=== PATIENT | male | born 1955 | race African-American/Black ===

== ENCOUNTER 2017-10-16 04:47 | Inpatient (IN) ==
[2017-10-16] MEDS ORDERED: DOPamine 800 MG/250 ML PREMIX IV ONE ×2 (05:09→17:54)
[2017-10-16] MEDS ORDERED: SODIUM CHLORIDE 0.9% 1,000 ML IV STA (05:23)
[2017-10-16] MEDS ORDERED: DOPamine 800 MG/250 ML PREMIX IV PRN (05:23)
[2017-10-16] MEDS ORDERED: VANCOMYCIN INJ 1,000 MG in SODIUM CHLORIDE 0.9% 250 ML IV STA (05:40)
[2017-10-16] MEDS ORDERED: ONDANSETRON 4 MG/2 ML VIAL IV PRN (06:51)
[2017-10-16] MEDS ORDERED: ALBUTEROL 2.5 MG/3 ML NEB RESP TX PRN (06:51)
[2017-10-16] MEDS ORDERED: VANCOMYCIN INJ 1,250 MG in SODIUM CHLORIDE 0.9% 250 ML IV PRN (07:38)
[2017-10-16 07:50] LABS: Amorphous Crystals,Urine Few /HPF (Few); Apearance,Urine CLOUDY (Clear); Bacteria,Urine Few /HPF (Few); Bilirubin,Urine Negative (Negative); Blood, Urine Moderate mg/dL (Negative); Glucose,Urine (UA) 50 mg/dL (Negative); Hyaline Casts,Urine 8 /LPF (0-3); Ketones,Urine 5 mg/dL (Negative); Mucus,Urine Occasional /LPF (Occasional); Nitrite,Urine Negative (Negative); Protein,Urine >=500 MG/DL; RBC,Urine 42 /HPF (0-4); Squamous Epithelial Cell,Urine Occasional /HPF (0-10); Urine Color Amber (Yellow); Urine Specific Gravity 1.015 (1.001-1.035); WBC,Urine 145 /HPF (0-6)
[2017-10-16] MEDS ORDERED: PIPERACILLIN/TAZOBACTAM 3,375 MG in SODIUM CHLORIDE 0.9% 100 ML IV SCH (08:00)
[2017-10-16] MEDS: SODIUM CHLOR 0.9% KCL 40 MEQ 40 MEQ/1,000 ML BAG IV SCH ×2 (08:00→12:00)
[2017-10-16] MEDS ORDERED: MORPHINE 4 MG/1 ML VIAL ONE (08:04)
[2017-10-16] MEDS: PANTOPRAZOLE 40 MG VIAL IV SCH (09:00)
[2017-10-16] MEDS: NOREPINEPHRINE 8 MG in SODIUM CHLORIDE 0.9% 242 ML IV PRN ×3 (09:00→20:00)
[2017-10-16] MEDS ORDERED: HEPARIN/NACL 0.9% 2 UNITS/ML 500 ML IV ONE (10:22)
[2017-10-16 10:35] LABS: Lactic Acid 2.1 MMOL/L (0.4-2.0)
[2017-10-16] MEDS ORDERED: POTASSIUM CHLORIDE 20 MEQ TABLET PO ONE (10:47)
[2017-10-16 10:55] LABS: VBG Base Excess -4.5 MEQ/L (0-4); VBG HCO3 20.7 MEQ/L (24-28); VBG Oxygen Saturation 97.3 %; VBG PH 7.403
[2017-10-16] MEDS: cefTRIAXone 1,000 MG in SYRINGE 1 EACH IV SCH ×2 (11:00→21:32)
[2017-10-16] MEDS ORDERED: VANCOMYCIN INJ 500 MG in SODIUM CHLORIDE 0.9% 100 ML IV ONE (11:00)
[2017-10-16] MEDS ORDERED: SODIUM BICARBONATE 50 MEQ/50 ML SYRINGE IV ONE ×3 (11:08→12:48)
[2017-10-16 11:17] LABS: Calcium 7.2 MG/DL (8.5-10.1); Osmolality,Calculated 355.8 MOS/KG (273-304)
[2017-10-16 11:20] LABS: Potassium 1.9 MMOL/L (3.5-5.1)
[2017-10-16] MEDS: POTASSIUM CHLORIDE RIDER 20 MEQ in PREMIX 1 EACH IV SCH ×3 (11:30→14:30)
[2017-10-16] MEDS: metroNIDAZOLE INJ 500 MG in PREMIX 1 EACH IV SCH ×2 (12:30→21:32)
[2017-10-16 13:51] LABS: Calcium 6.9 MG/DL (8.5-10.1); Osmolality,Calculated 353.8 MOS/KG (273-304); Potassium 3.2 MMOL/L (3.5-5.1)
[2017-10-16] MEDS ORDERED: MORPHINE 4 MG/1 ML VIAL IV ONE (14:25)
[2017-10-16] MEDS ORDERED: NOREPINEPHRINE 4 MG/4 ML VIAL IV ONE (15:07)
[2017-10-16] MEDS: POTASSIUM CHLORIDE INJ 40 MEQ in SODIUM CHLORIDE 0.45% 1,000 ML IV SCH (17:30)
[2017-10-16 17:53] LABS: Calcium 6.7 MG/DL (8.5-10.1); Osmolality,Calculated 356.6 MOS/KG (273-304); Potassium 4.3 MMOL/L (3.5-5.1)
[2017-10-16] MEDS: DOPamine 800 MG/250 ML PREMIX IV PRN (18:00)
[2017-10-16] MEDS: MORPHINE 4 MG/1 ML VIAL IV PRN (18:00)
[2017-10-16 21:06] LABS: Osmolality,Calculated 359.5 MOS/KG (273-304); Potassium 3.4 MMOL/L (3.5-5.1)
[2017-10-17] MEDS: POTASSIUM CHLORIDE INJ 40 MEQ in SODIUM CHLORIDE 0.45% 1,000 ML IV SCH (01:48)
[2017-10-17] MEDS: metroNIDAZOLE INJ 500 MG in PREMIX 1 EACH IV SCH ×3 (04:10→18:18)
[2017-10-17 04:49] LABS: Basophils % 0.1 % (0.0-0.8); Eosinophils # 0.1 10*3/uL (0.0-0.87); Eosinophils % 0.3 % (0.00-10.9); Hematocrit 30.8 VOL% (42.0-52.0); Hemoglobin 9.5 GM/DL (14.0-18.0); Immature Granulocytes % 1.1 %; Immature Granulocytes Absolute 0.17 #; Lymphocytes # 2.2 10*3/uL (1.4-4.0); Lymphocytes % 15.1 % (21.2-54.2); Mean Corpuscular HGB Conc 30.8 GM/DL (32-36); Mean Corpuscular Hemoglobin 30 PG (27-34); Mean Corpuscular Volume 96.3 FL (87-102); Mean Platelet Volume 12.6 FL (9.6-12.0); NRBC # 0.13 10*3/uL; Neutrophils # 11.3 10*3/uL (1.4-7.4); Neutrophils % 76.4 % (38.7-73.9); Platelet Count 160 T/CUMM (130-400); Red Cell Distribution Width 20.6 % (9.3-17.3); White Blood Count 14.8 T/CUMM (4-12)
[2017-10-17 05:45] LABS: Hypochromasia 1+; Lymphocytes 9 % (20-55); Microcytosis Slight; Platelet Estimate Normal; Segmented Neutrophils 85 % (50-85); Total Cells Counted 100
[2017-10-17] MEDS: NOREPINEPHRINE 8 MG in SODIUM CHLORIDE 0.9% 242 ML IV PRN ×4 (07:46→22:24)
[2017-10-17] MEDS: DOPamine 800 MG/250 ML PREMIX IV PRN (08:34)
[2017-10-17] MEDS ORDERED: DEXTROSE 50% 25 GM/50 ML VIAL IV PRN (09:15)
[2017-10-17] MEDS ORDERED: GLUCAGON 1 MG VIAL IM PRN (09:15)
[2017-10-17] MEDS ORDERED: POTASSIUM CHLORIDE INJ 40 MEQ in DEXTROSE 5% 1,000 ML IV SCH (10:00)
[2017-10-17] MEDS: cefTRIAXone 1,000 MG in SYRINGE 1 EACH IV SCH ×2 (10:17→22:27)
[2017-10-17] MEDS: PANTOPRAZOLE 40 MG VIAL IV SCH (10:18)
[2017-10-17 11:43] LABS: Potassium 3.6 MMOL/L (3.5-5.1)
[2017-10-17] MEDS: INSULIN LISPRO 100 UNIT/ML SUBCUT SCH ×3 (13:13→20:29)
[2017-10-17] MEDS: FLUCONAZOLE INJ 100 MG in IV BAG 1 EACH IV SCH (13:13)
[2017-10-17 15:39] LABS: Calcium 7.2 MG/DL (8.5-10.1); Osmolality,Calculated 340.7 MOS/KG (273-304)
[2017-10-17] MEDS: SKIN HEALING OINT (AQUAPHOR) 50 GM TUBE TOP SCH (16:16)
[2017-10-17] MEDS: SODIUM HYPOCHLORITE 0.25% IRRIG 473 ML BOTTLE TOP SCH (16:16)
[2017-10-17] MEDS: SODIUM CHLORIDE 0.45% 1,000 ML IV SCH (16:16)
[2017-10-18] MEDS: INSULIN LISPRO 100 UNIT/ML SUBCUT SCH ×7 (00:28→23:37)
[2017-10-18] MEDS: SODIUM CHLORIDE 0.45% 1,000 ML IV SCH (00:35)
[2017-10-18] MEDS: NOREPINEPHRINE 8 MG in SODIUM CHLORIDE 0.9% 242 ML IV PRN ×4 (01:44→21:18)
[2017-10-18] MEDS: metroNIDAZOLE INJ 500 MG in PREMIX 1 EACH IV SCH ×3 (03:16→18:51)
[2017-10-18 05:36] LABS: Basophils % 0.1 % (0.0-0.8); Eosinophils # 0.2 10*3/uL (0.0-0.87); Eosinophils % 1.9 % (0.00-10.9); Hemoglobin 8.4 GM/DL (14.0-18.0); Immature Granulocytes % 1.1 %; Immature Granulocytes Absolute 0.12 #; Lymphocytes # 2.4 10*3/uL (1.4-4.0); Lymphocytes % 21.7 % (21.2-54.2); Mean Corpuscular HGB Conc 31.1 GM/DL (32-36); Mean Corpuscular Hemoglobin 30 PG (27-34); Mean Corpuscular Volume 95.1 FL (87-102); Mean Platelet Volume 12.1 FL (9.6-12.0); Monocytes # 0.8 10*3/uL (0.11-0.8); Monocytes % 6.8 % (1.7-12.7); NRBC # 0.07 10*3/uL; Neutrophils # 7.6 10*3/uL (1.4-7.4); Neutrophils % 68.4 % (38.7-73.9); Red Blood Count 2.84 MC/CUMM (3.8-5.5); White Blood Count 11.1 T/CUMM (4-12)
[2017-10-18 05:38] LABS: Platelet Count 108 T/CUMM (130-400)
[2017-10-18 05:41] LABS: Calcium 6.9 MG/DL (8.5-10.1); Osmolality,Calculated 329.9 MOS/KG (273-304); Potassium 2.8 MMOL/L (3.5-5.1)
[2017-10-18] MEDS ORDERED: POTASSIUM CHLORIDE 20 MEQ TABLET PO ONE (07:31)
[2017-10-18] MEDS: PANTOPRAZOLE 40 MG VIAL IV SCH (08:03)
[2017-10-18] MEDS: POTASSIUM CHLORIDE INJ 40 MEQ in DEXTROSE 5% 1,000 ML IV SCH ×2 (08:27→19:00)
[2017-10-18] MEDS: cefTRIAXone 1,000 MG in SYRINGE 1 EACH IV SCH ×2 (11:48→21:19)
[2017-10-18] MEDS: SODIUM HYPOCHLORITE 0.25% IRRIG 473 ML BOTTLE TOP SCH (11:55)
[2017-10-18] MEDS: SKIN HEALING OINT (AQUAPHOR) 50 GM TUBE TOP SCH (11:56)
[2017-10-18 13:18] LABS: Calcium 7.3 MG/DL (8.5-10.1); Osmolality,Calculated 330.9 MOS/KG (273-304); Potassium 3.5 MMOL/L (3.5-5.1)
[2017-10-18] MEDS: VANCOMYCIN INJ 1,250 MG in SODIUM CHLORIDE 0.9% 250 ML IV SCH (13:18)
[2017-10-18] MEDS: FLUCONAZOLE INJ 100 MG in IV BAG 1 EACH IV SCH (13:59)
[2017-10-19] MEDS: metroNIDAZOLE INJ 500 MG in PREMIX 1 EACH IV SCH ×2 (02:08→11:23)
[2017-10-19] MEDS: INSULIN LISPRO 100 UNIT/ML SUBCUT SCH ×6 (04:58→23:49)
[2017-10-19 05:27] LABS: Basophils % 0.1 % (0.0-0.8); Eosinophils # 0.4 10*3/uL (0.0-0.87); Eosinophils % 3.7 % (0.00-10.9); Hematocrit 24.8 VOL% (42.0-52.0); Hemoglobin 7.7 GM/DL (14.0-18.0); Immature Granulocytes % 0.8 %; Immature Granulocytes Absolute 0.08 #; Lymphocytes # 1.8 10*3/uL (1.4-4.0); Lymphocytes % 18.6 % (21.2-54.2); Mean Corpuscular Hemoglobin 29 PG (27-34); Mean Corpuscular Volume 94.7 FL (87-102); Mean Platelet Volume 12.2 FL (9.6-12.0); Monocytes # 0.7 10*3/uL (0.11-0.8); Monocytes % 7.1 % (1.7-12.7); NRBC # 0.02 10*3/uL; Neutrophils # 6.8 10*3/uL (1.4-7.4); Neutrophils % 69.7 % (38.7-73.9); Platelet Count 88 T/CUMM (130-400); Red Blood Count 2.62 MC/CUMM (3.8-5.5); Red Cell Distribution Width 21.2 % (9.3-17.3); White Blood Count 9.8 T/CUMM (4-12)
[2017-10-19 05:44] LABS: Burr Cells Slight; Microcytosis 1+
[2017-10-19 05:45] LABS: Hypochromasia 1+; Platelet Estimate Decreased
[2017-10-19 05:48] LABS: Calcium 7.1 MG/DL (8.5-10.1); Osmolality,Calculated 323.2 MOS/KG (273-304); Potassium 3.3 MMOL/L (3.5-5.1)
[2017-10-19 05:52] LABS: Albumin 1.4 G/DL (3.4-5.0); Bilirubin,Total 0.6 MG/DL (0.2-1.0); Potassium 3.3 MMOL/L (3.5-5.1); Total Protein 4.4 G/DL (6.4-8.3)
[2017-10-19] MEDS: POTASSIUM CHLORIDE INJ 40 MEQ in DEXTROSE 5% 1,000 ML IV SCH ×2 (06:11→17:12)
[2017-10-19] MEDS: NOREPINEPHRINE 8 MG in SODIUM CHLORIDE 0.9% 242 ML IV PRN ×2 (06:12→15:43)
[2017-10-19] MEDS: SODIUM HYPOCHLORITE 0.25% IRRIG 473 ML BOTTLE TOP SCH (09:48)
[2017-10-19] MEDS: SKIN HEALING OINT (AQUAPHOR) 50 GM TUBE TOP SCH (09:48)
[2017-10-19] MEDS: PANTOPRAZOLE 40 MG VIAL IV SCH (09:54)
[2017-10-19] MEDS: cefTRIAXone 1,000 MG in SYRINGE 1 EACH IV SCH (10:02)
[2017-10-19] MEDS ORDERED: MAGNESIUM SULF RIDER 4 GM in PREMIX 1 EACH IV ONE (10:20)
[2017-10-19] MEDS ORDERED: POTASSIUM CHLORIDE 20 MEQ TABLET PO SCH (10:30)
[2017-10-19] MEDS: POTASSIUM CHLORIDE 20 MEQ/15 ML UDCUP PO SCH ×3 (11:22→20:54)
[2017-10-19] MEDS: VANCOMYCIN INJ 1,250 MG in SODIUM CHLORIDE 0.9% 250 ML IV SCH (12:30)
[2017-10-19] MEDS: FLUCONAZOLE INJ 100 MG in IV BAG 1 EACH IV SCH (12:31)
[2017-10-19] MEDS ORDERED: cefTRIAXone 2,000 MG in SYRINGE 1 EACH IV SCH (13:30)
[2017-10-20] MEDS: NOREPINEPHRINE 8 MG in SODIUM CHLORIDE 0.9% 242 ML IV PRN ×2 (01:42→15:34)
[2017-10-20] MEDS: POTASSIUM CHLORIDE INJ 40 MEQ in DEXTROSE 5% 1,000 ML IV SCH ×2 (04:10→16:41)
[2017-10-20 05:00] LABS: Prealbumin 5.8 MG/DL (20-40)
[2017-10-20 05:03] LABS: Calcium 7.1 MG/DL (8.5-10.1); Osmolality,Calculated 312.6 MOS/KG (273-304); Potassium 3.3 MMOL/L (3.5-5.1)
[2017-10-20] MEDS: INSULIN LISPRO 100 UNIT/ML SUBCUT SCH ×3 (06:30→18:35)
[2017-10-20] MEDS ORDERED: MAGNESIUM SULF RIDER 2 GM in PREMIX 1 EACH IV ONE (08:48)
[2017-10-20] MEDS: POTASSIUM CHLORIDE 20 MEQ TABLET PO SCH ×2 (09:39→13:01)
[2017-10-20] MEDS: SODIUM HYPOCHLORITE 0.25% IRRIG 473 ML BOTTLE TOP SCH (09:39)
[2017-10-20] MEDS: SKIN HEALING OINT (AQUAPHOR) 50 GM TUBE TOP SCH (09:39)
[2017-10-20] MEDS: PANTOPRAZOLE 40 MG VIAL IV SCH (09:42)
[2017-10-20] MEDS: FLUCONAZOLE INJ 100 MG in IV BAG 1 EACH IV SCH (13:01)
[2017-10-20] MEDS ORDERED: POTASSIUM PHOSPHATE 30 MMOL in SODIUM CHLORIDE 0.9% 250 ML IV ONE (14:00)
[2017-10-20] MEDS: MEROPENEM 1,000 MG in SYRINGE 1 EACH IV SCH (17:15)
[2017-10-20] MEDS ORDERED: IBUPROFEN 100 MG/5 ML UDCUP PO PRN (18:04)
[2017-10-20] MEDS: VANCOMYCIN INJ 1,250 MG in SODIUM CHLORIDE 0.9% 250 ML IV SCH (18:24)
[2017-10-21] MEDS: MEROPENEM 1,000 MG in SYRINGE 1 EACH IV SCH ×3 (00:33→16:47)
[2017-10-21] MEDS: INSULIN LISPRO 100 UNIT/ML SUBCUT SCH ×5 (00:33→23:20)
[2017-10-21 04:51] LABS: Basophils % 0.1 % (0.0-0.8); Eosinophils # 0.3 10*3/uL (0.0-0.87); Hemoglobin 6.7 GM/DL (14.0-18.0); Immature Granulocytes % 1.3 %; Immature Granulocytes Absolute 0.09 #; Lymphocytes % 30.2 % (21.2-54.2); Mean Corpuscular HGB Conc 31.9 GM/DL (32-36); Mean Corpuscular Hemoglobin 30 PG (27-34); Mean Corpuscular Volume 92.5 FL (87-102); Monocytes # 0.6 10*3/uL (0.11-0.8); Monocytes % 8.6 % (1.7-12.7); Neutrophils # 3.8 10*3/uL (1.4-7.4); Neutrophils % 55.8 % (38.7-73.9); Platelet Count 92 T/CUMM (130-400); Red Blood Count 2.27 MC/CUMM (3.8-5.5); Red Cell Distribution Width 22.1 % (9.3-17.3); White Blood Count 6.8 T/CUMM (4-12)
[2017-10-21 05:21] LABS: Band Neutrophils 1 % (0-10); Eosinophils 7 % (0-10); Lymphocytes 15 % (20-55); Segmented Neutrophils 71 % (50-85); Total Cells Counted 100
[2017-10-21 05:22] LABS: Hypochromasia 1+; Microcytosis 1+; Ovalocytes Slight; Platelet Estimate Decreased
[2017-10-21 05:36] LABS: Calcium 6.6 MG/DL (8.5-10.1); Osmolality,Calculated 302.3 MOS/KG (273-304); Potassium 4.1 MMOL/L (3.5-5.1)
[2017-10-21] MEDS: POTASSIUM CHLORIDE INJ 40 MEQ in DEXTROSE 5% 1,000 ML IV SCH ×3 (06:10→20:54)
[2017-10-21] MEDS: PANTOPRAZOLE 40 MG VIAL IV SCH (08:24)
[2017-10-21] MEDS: NOREPINEPHRINE 8 MG in SODIUM CHLORIDE 0.9% 242 ML IV PRN ×3 (08:45→23:50)
[2017-10-21] MEDS ORDERED: SODIUM CHLORIDE 0.9% 1,000 ML IV PRN (10:09)
[2017-10-21] MEDS: FLUCONAZOLE INJ 100 MG in IV BAG 1 EACH IV SCH (13:10)
[2017-10-21] MEDS: VANCOMYCIN INJ 1,250 MG in SODIUM CHLORIDE 0.9% 250 ML IV SCH (13:10)
[2017-10-21] MEDS: SKIN HEALING OINT (AQUAPHOR) 50 GM TUBE TOP SCH (13:11)
[2017-10-21] MEDS: SODIUM HYPOCHLORITE 0.25% IRRIG 473 ML BOTTLE TOP SCH (13:11)
[2017-10-21] MEDS ORDERED: NOREPINEPHRINE 4 MG/4 ML VIAL IV ONE (16:56)
[2017-10-21] MEDS: MORPHINE 4 MG/1 ML VIAL IV PRN (18:18)
[2017-10-22] MEDS: MEROPENEM 1,000 MG in SYRINGE 1 EACH IV SCH ×3 (00:08→16:53)
[2017-10-22 03:54] LABS: Basophils % 0.1 % (0.0-0.8); Eosinophils # 0.3 10*3/uL (0.0-0.87); Eosinophils % 3.4 % (0.00-10.9); Hematocrit 23.8 VOL% (42.0-52.0); Hemoglobin 7.4 GM/DL (14.0-18.0); Immature Granulocytes % 1.3 %; Lymphocytes # 1.7 10*3/uL (1.4-4.0); Lymphocytes % 21.2 % (21.2-54.2); Mean Corpuscular HGB Conc 31.1 GM/DL (32-36); Mean Corpuscular Hemoglobin 29 PG (27-34); Mean Corpuscular Volume 94.4 FL (87-102); Mean Platelet Volume 13.3 FL (9.6-12.0); Monocytes # 0.8 10*3/uL (0.11-0.8); Monocytes % 9.5 % (1.7-12.7); Neutrophils # 5.1 10*3/uL (1.4-7.4); Neutrophils % 64.5 % (38.7-73.9); Platelet Count 138 T/CUMM (130-400); Red Blood Count 2.52 MC/CUMM (3.8-5.5); Red Cell Distribution Width 22.3 % (9.3-17.3); White Blood Count 7.9 T/CUMM (4-12)
[2017-10-22 03:59] LABS: Calcium 6.9 MG/DL (8.5-10.1); Osmolality,Calculated 295.7 MOS/KG (273-304); Potassium 3.9 MMOL/L (3.5-5.1)
[2017-10-22 05:15] LABS: Eosinophils 2 % (0-10); Lymphocytes 17 % (20-55); Macrocytosis Slight; Platelet Estimate Normal; Segmented Neutrophils 78 % (50-85); Total Cells Counted 100
[2017-10-22] MEDS: INSULIN LISPRO 100 UNIT/ML SUBCUT SCH ×3 (05:28→18:03)
[2017-10-22] MEDS: VANCOMYCIN INJ 1,250 MG in SODIUM CHLORIDE 0.9% 250 ML IV SCH (06:05)
[2017-10-22] MEDS: SODIUM HYPOCHLORITE 0.25% IRRIG 473 ML BOTTLE TOP SCH (08:29)
[2017-10-22] MEDS: SKIN HEALING OINT (AQUAPHOR) 50 GM TUBE TOP SCH (08:29)
[2017-10-22] MEDS: PANTOPRAZOLE 40 MG VIAL IV SCH (08:30)
[2017-10-22] MEDS ORDERED: MAGNESIUM SULF RIDER 4 GM in PREMIX 1 EACH IV ONE (08:31)
[2017-10-22] MEDS: NOREPINEPHRINE 8 MG in SODIUM CHLORIDE 0.9% 242 ML IV PRN (11:04)
[2017-10-22] MEDS: FLUCONAZOLE INJ 100 MG in IV BAG 1 EACH IV SCH (12:05)
[2017-10-22] MEDS: POTASSIUM CHLORIDE INJ 40 MEQ in DEXTROSE 5% 1,000 ML IV SCH (17:49)
[2017-10-23] MEDS: INSULIN LISPRO 100 UNIT/ML SUBCUT SCH ×4 (00:09→18:10)
[2017-10-23] MEDS: MEROPENEM 1,000 MG in SYRINGE 1 EACH IV SCH ×3 (00:13→16:35)
[2017-10-23] MEDS: VANCOMYCIN INJ 1,250 MG in SODIUM CHLORIDE 0.9% 250 ML IV SCH ×2 (00:14→18:50)
[2017-10-23] MEDS: MORPHINE 4 MG/1 ML VIAL IV PRN (00:14)
[2017-10-23] MEDS: NOREPINEPHRINE 8 MG in SODIUM CHLORIDE 0.9% 242 ML IV PRN ×2 (03:22→16:48)
[2017-10-23 03:23] LABS: Basophils % 0.2 % (0.0-0.8); Eosinophils # 0.2 10*3/uL (0.0-0.87); Eosinophils % 3.2 % (0.00-10.9); Hematocrit 21.3 VOL% (42.0-52.0); Hemoglobin 6.6 GM/DL (14.0-18.0); Immature Granulocytes Absolute 0.06 #; Lymphocytes # 1.6 10*3/uL (1.4-4.0); Lymphocytes % 24.8 % (21.2-54.2); Mean Corpuscular Hemoglobin 29 PG (27-34); Mean Corpuscular Volume 94.2 FL (87-102); Mean Platelet Volume 12.4 FL (9.6-12.0); Monocytes # 0.6 10*3/uL (0.11-0.8); Monocytes % 9.8 % (1.7-12.7); Neutrophils # 3.8 10*3/uL (1.4-7.4); Platelet Count 136 T/CUMM (130-400); Red Blood Count 2.26 MC/CUMM (3.8-5.5); Red Cell Distribution Width 22.4 % (9.3-17.3); White Blood Count 6.2 T/CUMM (4-12)
[2017-10-23 03:40] LABS: Osmolality,Calculated 291.7 MOS/KG (273-304); Potassium 3.4 MMOL/L (3.5-5.1)
[2017-10-23] MEDS: MAGNESIUM SULF RIDER 2 GM in PREMIX 1 EACH IV PRN (04:56)
[2017-10-23] MEDS: POTASSIUM CHLORIDE 20 MEQ/15 ML UDCUP PER TUBE PRN ×4 (04:57→16:41)
[2017-10-23] MEDS: PANTOPRAZOLE 40 MG VIAL IV SCH (08:31)
[2017-10-23] MEDS: SKIN HEALING OINT (AQUAPHOR) 50 GM TUBE TOP SCH (08:31)
[2017-10-23] MEDS: SODIUM HYPOCHLORITE 0.25% IRRIG 473 ML BOTTLE TOP SCH (08:31)
[2017-10-23] MEDS ORDERED: POTASSIUM CHLORIDE 20 MEQ TABLET PO SCH (09:30)
[2017-10-23] MEDS: FLUCONAZOLE INJ 100 MG in IV BAG 1 EACH IV SCH (13:20)
[2017-10-24] MEDS: MEROPENEM 1,000 MG in SYRINGE 1 EACH IV SCH ×3 (00:16→16:44)
[2017-10-24] MEDS: MORPHINE 4 MG/1 ML VIAL IV PRN (02:41)
[2017-10-24 05:00] LABS: Basophils % 0.2 % (0.0-0.8); Eosinophils # 0.2 10*3/uL (0.0-0.87); Eosinophils % 2.7 % (0.00-10.9); Hematocrit 19.6 VOL% (42.0-52.0); Immature Granulocytes % 0.7 %; Immature Granulocytes Absolute 0.04 #; Lymphocytes # 1.4 10*3/uL (1.4-4.0); Lymphocytes % 25.4 % (21.2-54.2); Mean Corpuscular HGB Conc 31.6 GM/DL (32-36); Mean Corpuscular Hemoglobin 30 PG (27-34); Mean Corpuscular Volume 95.1 FL (87-102); Monocytes # 0.6 10*3/uL (0.11-0.8); Monocytes % 11.5 % (1.7-12.7); Neutrophils # 3.3 10*3/uL (1.4-7.4); Neutrophils % 59.5 % (38.7-73.9); Platelet Count 157 T/CUMM (130-400); Red Blood Count 2.06 MC/CUMM (3.8-5.5); Red Cell Distribution Width 22.7 % (9.3-17.3); White Blood Count 5.5 T/CUMM (4-12)
[2017-10-24 05:02] LABS: Hemoglobin 6.2 GM/DL (14.0-18.0)
[2017-10-24 05:22] LABS: Osmolality,Calculated 295.4 MOS/KG (273-304); Potassium 3.4 MMOL/L (3.5-5.1)
[2017-10-24 05:27] LABS: Prealbumin 11.5 MG/DL (20-40)
[2017-10-24] MEDS: INSULIN LISPRO 100 UNIT/ML SUBCUT SCH ×4 (05:27→18:16)
[2017-10-24 05:31] LABS: Eosinophils 2 % (0-10); Lymphocytes 24 % (20-55); Segmented Neutrophils 67 % (50-85); Total Cells Counted 100
[2017-10-24 05:32] LABS: Hypochromasia 1+; Platelet Estimate Normal
[2017-10-24] MEDS: MAGNESIUM SULF RIDER 2 GM in PREMIX 1 EACH IV PRN (07:01)
[2017-10-24] MEDS: NOREPINEPHRINE 8 MG in SODIUM CHLORIDE 0.9% 242 ML IV PRN (07:01)
[2017-10-24] MEDS: POTASSIUM CHLORIDE 20 MEQ/15 ML UDCUP PER TUBE PRN ×4 (07:02→20:30)
[2017-10-24] MEDS: PANTOPRAZOLE 40 MG VIAL IV SCH (09:14)
[2017-10-24] MEDS: SODIUM HYPOCHLORITE 0.25% IRRIG 473 ML BOTTLE TOP SCH (12:32)
[2017-10-24] MEDS: SKIN HEALING OINT (AQUAPHOR) 50 GM TUBE TOP SCH (12:33)
[2017-10-24] MEDS: FLUCONAZOLE INJ 100 MG in IV BAG 1 EACH IV SCH (12:44)
[2017-10-24] MEDS: IBUPROFEN 800 MG TABLET PO PRN (14:12)
[2017-10-24] MEDS ORDERED: VANCOMYCIN INJ 1,250 MG in SODIUM CHLORIDE 0.9% 250 ML IV PRN (15:20)
[2017-10-24] MEDS ORDERED: VANCOMYCIN INJ 1,250 MG in SODIUM CHLORIDE 0.9% 250 ML IV ONE (16:00)
[2017-10-24 19:12] LABS: Hematocrit 25.7 VOL% (42.0-52.0); Hemoglobin 8.3 GM/DL (14.0-18.0)
[2017-10-25] MEDS: NOREPINEPHRINE 8 MG in SODIUM CHLORIDE 0.9% 242 ML IV PRN (00:02)
[2017-10-25] MEDS: INSULIN LISPRO 100 UNIT/ML SUBCUT SCH ×3 (00:08→12:23)
[2017-10-25 04:50] LABS: Basophils % 0.2 % (0.0-0.8); Eosinophils # 0.2 10*3/uL (0.0-0.87); Eosinophils % 2.8 % (0.00-10.9); Hematocrit 26.3 VOL% (42.0-52.0); Hemoglobin 8.5 GM/DL (14.0-18.0); Immature Granulocytes % 0.7 %; Immature Granulocytes Absolute 0.04 #; Lymphocytes # 1.6 10*3/uL (1.4-4.0); Lymphocytes % 27.7 % (21.2-54.2); Mean Corpuscular HGB Conc 32.3 GM/DL (32-36); Mean Corpuscular Hemoglobin 30 PG (27-34); Mean Corpuscular Volume 93.9 FL (87-102); Mean Platelet Volume 11.6 FL (9.6-12.0); Monocytes # 0.7 10*3/uL (0.11-0.8); Neutrophils # 3.3 10*3/uL (1.4-7.4); Neutrophils % 56.6 % (38.7-73.9); Platelet Count 187 T/CUMM (130-400); Red Cell Distribution Width 20.1 % (9.3-17.3); White Blood Count 5.8 T/CUMM (4-12)
[2017-10-25 05:26] LABS: Eosinophils 1 % (0-10); Hypochromasia 1+; Lymphocytes 25 % (20-55); Ovalocytes Slight; Platelet Estimate Adequate; Segmented Neutrophils 57 % (50-85); Total Cells Counted 100
[2017-10-25 05:27] LABS: Albumin 1.1 G/DL (3.4-5.0); Bilirubin,Total 0.4 MG/DL (0.2-1.0); Calcium 7.5 MG/DL (8.5-10.1); Osmolality,Calculated 291.4 MOS/KG (273-304); Potassium 3.4 MMOL/L (3.5-5.1); Total Protein 4.6 G/DL (6.4-8.3)
[2017-10-25] MEDS: POTASSIUM CHLORIDE 20 MEQ/15 ML UDCUP PER TUBE PRN ×3 (05:48→11:03)
[2017-10-25] MEDS: MAGNESIUM SULF RIDER 4 GM in PREMIX 1 EACH IV PRN (05:50)
[2017-10-25] MEDS ORDERED: POTASSIUM PHOSPHATE 40 MMOL in SODIUM CHLORIDE 0.9% 250 ML IV ONE (10:00)
[2017-10-25] MEDS: MEROPENEM 1,000 MG in SYRINGE 1 EACH IV SCH ×3 (11:04→16:43)
[2017-10-25] MEDS: PANTOPRAZOLE 40 MG VIAL IV SCH (11:04)
[2017-10-25] MEDS: FLUCONAZOLE INJ 100 MG in IV BAG 1 EACH IV SCH (13:14)
[2017-10-25] MEDS: SODIUM HYPOCHLORITE 0.25% IRRIG 473 ML BOTTLE TOP SCH (14:10)
[2017-10-25] MEDS: SKIN HEALING OINT (AQUAPHOR) 50 GM TUBE TOP SCH (14:10)
[2017-10-25] MEDS: SODIUM CHLOR 0.45% KCL 20 MEQ 20 MEQ/1,000 ML BAG IV SCH ×2 (15:00→23:50)
[2017-10-25] MEDS: IBUPROFEN 800 MG TABLET PO PRN ×2 (15:11→22:04)
[2017-10-25] MEDS: ENOXAPARIN 100 MG/ML SYRINGE SUBCUT SCH (16:43)
[2017-10-26] MEDS: ENOXAPARIN 100 MG/ML SYRINGE SUBCUT SCH ×2 (00:54→16:43)
[2017-10-26] MEDS: MEROPENEM 1,000 MG in SYRINGE 1 EACH IV SCH ×3 (00:54→16:43)
[2017-10-26 03:57] LABS: Basophils % 0.2 % (0.0-0.8); Eosinophils # 0.2 10*3/uL (0.0-0.87); Eosinophils % 3.7 % (0.00-10.9); Immature Granulocytes % 0.9 %; Immature Granulocytes Absolute 0.04 #; Lymphocytes # 1.5 10*3/uL (1.4-4.0); Lymphocytes % 32.6 % (21.2-54.2); Mean Corpuscular Hemoglobin 30 PG (27-34); Mean Corpuscular Volume 95.1 FL (87-102); Mean Platelet Volume 11.5 FL (9.6-12.0); Monocytes # 0.6 10*3/uL (0.11-0.8); Monocytes % 12.8 % (1.7-12.7); Neutrophils # 2.3 10*3/uL (1.4-7.4); Neutrophils % 49.8 % (38.7-73.9); Platelet Count 191 T/CUMM (130-400); Red Blood Count 2.63 MC/CUMM (3.8-5.5); Red Cell Distribution Width 20.1 % (9.3-17.3); White Blood Count 4.5 T/CUMM (4-12)
[2017-10-26 04:17] LABS: Albumin 1.1 G/DL (3.4-5.0); Bilirubin,Total 0.4 MG/DL (0.2-1.0); Calcium 7.2 MG/DL (8.5-10.1); Osmolality,Calculated 285.7 MOS/KG (273-304); Total Protein 4.4 G/DL (6.4-8.3)
[2017-10-26] MEDS: MAGNESIUM SULF RIDER 2 GM in PREMIX 1 EACH IV PRN (04:54)
[2017-10-26] MEDS: PANTOPRAZOLE 40 MG VIAL IV SCH (09:05)
[2017-10-26] MEDS: SODIUM HYPOCHLORITE 0.25% IRRIG 473 ML BOTTLE TOP SCH (09:06)
[2017-10-26] MEDS: SKIN HEALING OINT (AQUAPHOR) 50 GM TUBE TOP SCH (09:06)
[2017-10-26] MEDS: VANCOMYCIN INJ 1,250 MG in SODIUM CHLORIDE 0.9% 250 ML IV SCH (10:30)
[2017-10-26] MEDS ORDERED: HYDROCORTISONE 100 MG VIAL IV ONE (10:39)
[2017-10-26] MEDS: SODIUM CHLOR 0.45% KCL 20 MEQ 20 MEQ/1,000 ML BAG IV SCH ×2 (11:27→21:18)
[2017-10-26] MEDS: IBUPROFEN 800 MG TABLET PO PRN (11:40)
[2017-10-26] MEDS: HYDROCORTISONE 100 MG VIAL IV SCH ×2 (16:47→22:56)
[2017-10-26] MEDS: MORPHINE 4 MG/1 ML VIAL IV PRN (21:19)
[2017-10-27] MEDS: MEROPENEM 1,000 MG in SYRINGE 1 EACH IV SCH ×3 (02:20→17:08)
[2017-10-27] MEDS: ENOXAPARIN 100 MG/ML SYRINGE SUBCUT SCH ×2 (02:25→13:39)
[2017-10-27] MEDS: HYDROCORTISONE 100 MG VIAL IV SCH ×4 (04:40→23:07)
[2017-10-27] MEDS: MORPHINE 4 MG/1 ML VIAL IV PRN ×2 (04:41→20:21)
[2017-10-27 05:16] LABS: Basophils % 0.3 % (0.0-0.8); Hematocrit 24.4 VOL% (42.0-52.0); Hemoglobin 7.8 GM/DL (14.0-18.0); Immature Granulocytes % 0.5 %; Immature Granulocytes Absolute 0.02 #; Lymphocytes # 0.8 10*3/uL (1.4-4.0); Lymphocytes % 22.3 % (21.2-54.2); Mean Corpuscular Hemoglobin 30 PG (27-34); Mean Corpuscular Volume 94.6 FL (87-102); Mean Platelet Volume 11.4 FL (9.6-12.0); Monocytes # 0.3 10*3/uL (0.11-0.8); Monocytes % 8.3 % (1.7-12.7); Neutrophils # 2.6 10*3/uL (1.4-7.4); Neutrophils % 68.6 % (38.7-73.9); Platelet Count 220 T/CUMM (130-400); Red Blood Count 2.58 MC/CUMM (3.8-5.5); Red Cell Distribution Width 19.6 % (9.3-17.3); White Blood Count 3.7 T/CUMM (4-12)
[2017-10-27 05:32] LABS: Osmolality,Calculated 284.8 MOS/KG (273-304)
[2017-10-27] MEDS: MAGNESIUM SULF RIDER 2 GM in PREMIX 1 EACH IV PRN (07:30)
[2017-10-27] MEDS: SODIUM CHLOR 0.45% KCL 20 MEQ 20 MEQ/1,000 ML BAG IV SCH ×2 (07:31→21:50)
[2017-10-27] MEDS: SODIUM HYPOCHLORITE 0.25% IRRIG 473 ML BOTTLE TOP SCH (09:08)
[2017-10-27] MEDS: SKIN HEALING OINT (AQUAPHOR) 50 GM TUBE TOP SCH (09:09)
[2017-10-27] MEDS: PANTOPRAZOLE 40 MG VIAL IV SCH (09:17)
[2017-10-27] MEDS: VANCOMYCIN INJ 1,250 MG in SODIUM CHLORIDE 0.9% 250 ML IV SCH (09:19)
[2017-10-27] MEDS ORDERED: SODIUM CHLORIDE 0.9% 1,000 ML IV PRN (10:03)
[2017-10-28] MEDS: ENOXAPARIN 100 MG/ML SYRINGE SUBCUT SCH ×2 (03:05→14:17)
[2017-10-28] MEDS: MEROPENEM 1,000 MG in SYRINGE 1 EACH IV SCH ×3 (03:05→16:47)
[2017-10-28] MEDS: SODIUM CHLOR 0.45% KCL 20 MEQ 20 MEQ/1,000 ML BAG IV SCH ×2 (03:29→08:55)
[2017-10-28] MEDS: HYDROCORTISONE 100 MG VIAL IV SCH ×4 (04:52→22:41)
[2017-10-28 05:01] LABS: Basophils % 0.2 % (0.0-0.8); Hematocrit 30.4 VOL% (42.0-52.0); Hemoglobin 9.9 GM/DL (14.0-18.0); Immature Granulocytes % 0.4 %; Immature Granulocytes Absolute 0.02 #; Lymphocytes # 0.8 10*3/uL (1.4-4.0); Lymphocytes % 16.6 % (21.2-54.2); Mean Corpuscular HGB Conc 32.6 GM/DL (32-36); Mean Corpuscular Hemoglobin 31 PG (27-34); Mean Corpuscular Volume 93.8 FL (87-102); Mean Platelet Volume 10.8 FL (9.6-12.0); Monocytes # 0.4 10*3/uL (0.11-0.8); Monocytes % 9.1 % (1.7-12.7); Neutrophils # 3.6 10*3/uL (1.4-7.4); Neutrophils % 73.7 % (38.7-73.9); Platelet Count 226 T/CUMM (130-400); Red Blood Count 3.24 MC/CUMM (3.8-5.5); Red Cell Distribution Width 18.3 % (9.3-17.3); White Blood Count 4.8 T/CUMM (4-12)
[2017-10-28 05:39] LABS: Calcium 7.4 MG/DL (8.5-10.1); Osmolality,Calculated 289.8 MOS/KG (273-304); Potassium 3.8 MMOL/L (3.5-5.1)
[2017-10-28] MEDS: MAGNESIUM SULF RIDER 2 GM in PREMIX 1 EACH IV PRN (06:28)
[2017-10-28] MEDS: PANTOPRAZOLE 40 MG VIAL IV SCH (09:41)
[2017-10-28] MEDS: SKIN HEALING OINT (AQUAPHOR) 50 GM TUBE TOP SCH (09:42)
[2017-10-28] MEDS: SODIUM HYPOCHLORITE 0.25% IRRIG 473 ML BOTTLE TOP SCH (09:42)
[2017-10-28] MEDS: VANCOMYCIN INJ 1,250 MG in SODIUM CHLORIDE 0.9% 250 ML IV SCH (10:11)
[2017-10-28] MEDS: MORPHINE 4 MG/1 ML VIAL IV PRN (14:17)
[2017-10-28] MEDS: MELATONIN 3 MG TABLET PO PRN (21:46)
[2017-10-29] MEDS: MEROPENEM 1,000 MG in SYRINGE 1 EACH IV SCH ×3 (01:47→18:47)
[2017-10-29] MEDS: ENOXAPARIN 100 MG/ML SYRINGE SUBCUT SCH (01:48)
[2017-10-29 01:54] LABS: Basophils % 0.2 % (0.0-0.8); Hematocrit 29.9 VOL% (42.0-52.0); Immature Granulocytes % 0.4 %; Immature Granulocytes Absolute 0.02 #; Lymphocytes # 0.8 10*3/uL (1.4-4.0); Lymphocytes % 15.4 % (21.2-54.2); Mean Corpuscular HGB Conc 33.4 GM/DL (32-36); Mean Corpuscular Hemoglobin 31 PG (27-34); Mean Corpuscular Volume 92.3 FL (87-102); Mean Platelet Volume 10.2 FL (9.6-12.0); Monocytes # 0.4 10*3/uL (0.11-0.8); Monocytes % 8.6 % (1.7-12.7); Neutrophils # 3.8 10*3/uL (1.4-7.4); Neutrophils % 75.4 % (38.7-73.9); Platelet Count 241 T/CUMM (130-400); Red Blood Count 3.24 MC/CUMM (3.8-5.5); Red Cell Distribution Width 18.1 % (9.3-17.3)
[2017-10-29 02:16] LABS: Calcium 7.4 MG/DL (8.5-10.1); Osmolality,Calculated 289.8 MOS/KG (273-304); Potassium 3.5 MMOL/L (3.5-5.1)
[2017-10-29] MEDS: MAGNESIUM SULF RIDER 4 GM in PREMIX 1 EACH IV PRN (04:10)
[2017-10-29] MEDS: HYDROCORTISONE 100 MG VIAL IV SCH ×2 (04:30→14:14)
[2017-10-29] MEDS: PANTOPRAZOLE 40 MG VIAL IV SCH (08:38)
[2017-10-29] MEDS: SODIUM HYPOCHLORITE 0.25% IRRIG 473 ML BOTTLE TOP SCH (10:13)
[2017-10-29] MEDS: SKIN HEALING OINT (AQUAPHOR) 50 GM TUBE TOP SCH (10:13)
[2017-10-29] MEDS: PANTOPRAZOLE 40 MG TABLET PO SCH (13:37)
[2017-10-29] MEDS: VANCOMYCIN INJ 1,250 MG in SODIUM CHLORIDE 0.9% 250 ML IV SCH (14:04)
[2017-10-29] MEDS: predniSONE 10 MG TABLET PO SCH ×2 (14:05→20:26)
[2017-10-29] MEDS: COLCHICINE 0.6 MG TABLET PO SCH ×2 (14:05→20:26)
[2017-10-29] MEDS: APIXABAN 5 MG TABLET PO SCH (20:26)
[2017-10-29] MEDS: MELATONIN 3 MG TABLET PO PRN (20:26)
[2017-10-30] MEDS: MEROPENEM 1,000 MG in SYRINGE 1 EACH IV SCH ×2 (01:29→09:50)
[2017-10-30] MEDS: PANTOPRAZOLE 40 MG TABLET PO SCH (09:50)
[2017-10-30] MEDS: VANCOMYCIN INJ 1,250 MG in SODIUM CHLORIDE 0.9% 250 ML IV SCH (09:50)
[2017-10-30] MEDS: predniSONE 10 MG TABLET PO SCH ×2 (09:50→20:47)
[2017-10-30] MEDS: APIXABAN 5 MG TABLET PO SCH ×2 (09:55→20:47)
[2017-10-30] MEDS: COLCHICINE 0.6 MG TABLET PO SCH ×2 (10:25→20:47)
[2017-10-30] MEDS: MAGNESIUM SULF RIDER 2 GM in PREMIX 1 EACH IV PRN (12:43)
[2017-10-30] MEDS: SKIN HEALING OINT (AQUAPHOR) 50 GM TUBE TOP SCH (16:27)
[2017-10-30] MEDS: SODIUM HYPOCHLORITE 0.25% IRRIG 473 ML BOTTLE TOP SCH (16:28)
[2017-10-31] MEDS: PANTOPRAZOLE 40 MG TABLET PO SCH (09:39)
[2017-10-31] MEDS: SODIUM HYPOCHLORITE 0.25% IRRIG 473 ML BOTTLE TOP SCH (09:39)
[2017-10-31] MEDS: predniSONE 10 MG TABLET PO SCH ×2 (09:39→21:26)
[2017-10-31] MEDS: SKIN HEALING OINT (AQUAPHOR) 50 GM TUBE TOP SCH (09:39)
[2017-10-31] MEDS: COLCHICINE 0.6 MG TABLET PO SCH ×2 (09:39→21:26)
[2017-10-31] MEDS: APIXABAN 5 MG TABLET PO SCH ×2 (09:39→21:26)
[2017-10-31] MEDS ORDERED: TUBERCULIN SKIN TEST 0.1 ML SYRINGE INTRADERM ONE (12:30)
[2017-11-01 04:27] LABS: Basophils % 0.1 % (0.0-0.8); Eosinophils % 0.1 % (0.00-10.9); Hematocrit 30.5 VOL% (42.0-52.0); Hemoglobin 10.1 GM/DL (14.0-18.0); Immature Granulocytes % 0.3 %; Immature Granulocytes Absolute 0.02 #; Lymphocytes # 1.4 10*3/uL (1.4-4.0); Lymphocytes % 20.7 % (21.2-54.2); Mean Corpuscular HGB Conc 33.1 GM/DL (32-36); Mean Corpuscular Hemoglobin 31 PG (27-34); Mean Corpuscular Volume 92.1 FL (87-102); Mean Platelet Volume 10.4 FL (9.6-12.0); Monocytes # 0.6 10*3/uL (0.11-0.8); Neutrophils # 4.7 10*3/uL (1.4-7.4); Neutrophils % 69.8 % (38.7-73.9); Platelet Count 253 T/CUMM (130-400); Red Blood Count 3.31 MC/CUMM (3.8-5.5); Red Cell Distribution Width 17.1 % (9.3-17.3); White Blood Count 6.7 T/CUMM (4-12)
[2017-11-01 04:53] LABS: Calcium 7.4 MG/DL (8.5-10.1); Osmolality,Calculated 288.6 MOS/KG (273-304); Potassium 2.9 MMOL/L (3.5-5.1)
[2017-11-01] MEDS: APIXABAN 5 MG TABLET PO SCH ×2 (09:59→21:58)
[2017-11-01] MEDS: COLCHICINE 0.6 MG TABLET PO SCH ×2 (09:59→21:59)
[2017-11-01] MEDS: predniSONE 10 MG TABLET PO SCH ×2 (09:59→21:59)
[2017-11-01] MEDS: PANTOPRAZOLE 40 MG TABLET PO SCH (09:59)
[2017-11-01] MEDS: SKIN HEALING OINT (AQUAPHOR) 50 GM TUBE TOP SCH (10:02)
[2017-11-01] MEDS: SODIUM HYPOCHLORITE 0.25% IRRIG 473 ML BOTTLE TOP SCH (10:05)
[2017-11-01] MEDS: POTASSIUM CHLORIDE 20 MEQ/15 ML UDCUP PER TUBE PRN ×2 (19:04→21:59)
[2017-11-01] MEDS: MELATONIN 3 MG TABLET PO PRN (21:59)
[2017-11-02] MEDS: POTASSIUM CHLORIDE 20 MEQ/15 ML UDCUP PER TUBE PRN ×4 (00:10→13:15)
[2017-11-02 05:56] LABS: Calcium 7.1 MG/DL (8.5-10.1); Osmolality,Calculated 288.6 MOS/KG (273-304); Potassium 3.5 MMOL/L (3.5-5.1)
[2017-11-02] MEDS: PANTOPRAZOLE 40 MG TABLET PO SCH (08:45)
[2017-11-02] MEDS: COLCHICINE 0.6 MG TABLET PO SCH ×2 (08:45→21:22)
[2017-11-02] MEDS: APIXABAN 5 MG TABLET PO SCH ×2 (08:46→21:20)
[2017-11-02] MEDS: predniSONE 10 MG TABLET PO SCH ×2 (08:46→21:20)
[2017-11-02] MEDS: SKIN HEALING OINT (AQUAPHOR) 50 GM TUBE TOP SCH (09:36)
[2017-11-02] MEDS: MAGNESIUM SULF RIDER 4 GM in PREMIX 1 EACH IV PRN (09:36)
[2017-11-02] MEDS: SODIUM HYPOCHLORITE 0.25% IRRIG 473 ML BOTTLE TOP SCH (09:36)
[2017-11-02] MEDS: MELATONIN 3 MG TABLET PO PRN (21:20)
[2017-11-03 05:18] LABS: Calcium 7.4 MG/DL (8.5-10.1); Osmolality,Calculated 289.6 MOS/KG (273-304); Potassium 3.3 MMOL/L (3.5-5.1)
[2017-11-03] MEDS: predniSONE 10 MG TABLET PO SCH ×2 (08:39→22:55)
[2017-11-03] MEDS: SKIN HEALING OINT (AQUAPHOR) 50 GM TUBE TOP SCH (08:39)
[2017-11-03] MEDS: APIXABAN 5 MG TABLET PO SCH ×2 (08:40→22:55)
[2017-11-03] MEDS: COLCHICINE 0.6 MG TABLET PO SCH ×2 (08:40→22:55)
[2017-11-03] MEDS: PANTOPRAZOLE 40 MG TABLET PO SCH (08:40)
[2017-11-03] MEDS: SODIUM HYPOCHLORITE 0.25% IRRIG 473 ML BOTTLE TOP SCH (08:42)
[2017-11-03] MEDS: MELATONIN 3 MG TABLET PO PRN (22:55)
[2017-11-04] MEDS: SODIUM HYPOCHLORITE 0.25% IRRIG 473 ML BOTTLE TOP SCH (08:53)
[2017-11-04] MEDS: SKIN HEALING OINT (AQUAPHOR) 50 GM TUBE TOP SCH (08:53)
[2017-11-04] MEDS: POTASSIUM CHLORIDE 20 MEQ/15 ML UDCUP PER TUBE PRN ×3 (08:53→17:15)
[2017-11-04] MEDS: APIXABAN 5 MG TABLET PO SCH ×2 (08:55→21:08)
[2017-11-04] MEDS: predniSONE 10 MG TABLET PO SCH ×2 (08:55→21:07)
[2017-11-04] MEDS: COLCHICINE 0.6 MG TABLET PO SCH ×2 (08:55→21:07)
[2017-11-04] MEDS: PANTOPRAZOLE 40 MG TABLET PO SCH (08:55)
[2017-11-04] MEDS: MAGNESIUM SULF RIDER 4 GM in PREMIX 1 EACH IV PRN (17:17)
[2017-11-04] MEDS: MELATONIN 3 MG TABLET PO PRN (21:07)
[2017-11-05 06:27] LABS: Calcium 7.4 MG/DL (8.5-10.1); Osmolality,Calculated 286.7 MOS/KG (273-304)
[2017-11-05] MEDS: MAGNESIUM SULF RIDER 2 GM in PREMIX 1 EACH IV PRN (09:36)
[2017-11-05] MEDS: predniSONE 10 MG TABLET PO SCH ×2 (09:42→20:52)
[2017-11-05] MEDS: PANTOPRAZOLE 40 MG TABLET PO SCH (09:42)
[2017-11-05] MEDS: COLCHICINE 0.6 MG TABLET PO SCH ×2 (09:42→20:52)
[2017-11-05] MEDS: APIXABAN 5 MG TABLET PO SCH ×2 (09:42→20:52)
[2017-11-05] MEDS: SKIN HEALING OINT (AQUAPHOR) 50 GM TUBE TOP SCH (09:45)
[2017-11-05] MEDS: SODIUM HYPOCHLORITE 0.25% IRRIG 473 ML BOTTLE TOP SCH (09:45)
[2017-11-05] MEDS: POTASSIUM CHLORIDE RIDER 10 MEQ in PREMIX 1 EACH IV PRN ×5 (13:04→18:46)
[2017-11-05 20:58] LABS: HIV Antigen/Antibody Result Nonreactive (Nonreactive); Hepatitis B Surface Ag Result Negative (Negative); Hepatitis C Virus Ab Quant 0.06 Index; Hepatitis C Virus Ab Result Negative (Negative)
[2017-11-06 04:04] LABS: Calcium 7.7 MG/DL (8.5-10.1); Osmolality,Calculated 284.8 MOS/KG (273-304); Potassium 3.2 MMOL/L (3.5-5.1)
[2017-11-06] MEDS: SKIN HEALING OINT (AQUAPHOR) 50 GM TUBE TOP SCH (09:40)
[2017-11-06] MEDS: SODIUM HYPOCHLORITE 0.25% IRRIG 473 ML BOTTLE TOP SCH (09:40)
[2017-11-06] MEDS: predniSONE 10 MG TABLET PO SCH (09:42)
[2017-11-06] MEDS: APIXABAN 5 MG TABLET PO SCH ×2 (09:42→21:19)
[2017-11-06] MEDS: PANTOPRAZOLE 40 MG TABLET PO SCH (09:42)
[2017-11-06] MEDS: COLCHICINE 0.6 MG TABLET PO SCH ×2 (09:42→21:19)
[2017-11-06] MEDS: MAGNESIUM SULF RIDER 2 GM in PREMIX 1 EACH IV PRN (09:50)
[2017-11-06] MEDS: POTASSIUM CHLORIDE RIDER 10 MEQ in PREMIX 1 EACH IV PRN ×3 (13:33→16:02)
[2017-11-06] MEDS: MELATONIN 3 MG TABLET PO PRN (21:18)
[2017-11-07 05:49] LABS: Basophils % 0.3 % (0.0-0.8); Eosinophils # 0.2 10*3/uL (0.0-0.87); Eosinophils % 2.6 % (0.00-10.9); Hematocrit 30.9 VOL% (42.0-52.0); Hemoglobin 9.9 GM/DL (14.0-18.0); Immature Granulocytes % 2.2 %; Immature Granulocytes Absolute 0.14 #; Lymphocytes # 1.4 10*3/uL (1.4-4.0); Lymphocytes % 21.9 % (21.2-54.2); Mean Corpuscular Hemoglobin 31 PG (27-34); Mean Corpuscular Volume 95.1 FL (87-102); Mean Platelet Volume 10.7 FL (9.6-12.0); Monocytes % 14.7 % (1.7-12.7); Neutrophils # 3.8 10*3/uL (1.4-7.4); Neutrophils % 58.3 % (38.7-73.9); Platelet Count 285 T/CUMM (130-400); Red Blood Count 3.25 MC/CUMM (3.8-5.5); Red Cell Distribution Width 16.4 % (9.3-17.3); White Blood Count 6.5 T/CUMM (4-12)
[2017-11-07 06:04] LABS: Calcium 7.7 MG/DL (8.5-10.1); Osmolality,Calculated 290.3 MOS/KG (273-304); Potassium 3.3 MMOL/L (3.5-5.1)
[2017-11-07] MEDS: APIXABAN 5 MG TABLET PO SCH ×2 (08:57→21:49)
[2017-11-07] MEDS: predniSONE 10 MG TABLET PO SCH (08:57)
[2017-11-07] MEDS: SKIN HEALING OINT (AQUAPHOR) 50 GM TUBE TOP SCH (08:57)
[2017-11-07] MEDS: PANTOPRAZOLE 40 MG TABLET PO SCH (08:57)
[2017-11-07] MEDS: SODIUM HYPOCHLORITE 0.25% IRRIG 473 ML BOTTLE TOP SCH (08:57)
[2017-11-07] MEDS: COLCHICINE 0.6 MG TABLET PO SCH ×2 (08:57→21:49)
[2017-11-07] MEDS: MAGNESIUM SULF RIDER 2 GM in PREMIX 1 EACH IV PRN (08:59)
[2017-11-07] MEDS: POTASSIUM CHLORIDE RIDER 20 MEQ in PREMIX 1 EACH IV PRN ×2 (10:28→13:25)
[2017-11-08 07:07] LABS: Basophils % 0.3 % (0.0-0.8); Eosinophils # 0.2 10*3/uL (0.0-0.87); Eosinophils % 2.2 % (0.00-10.9); Hematocrit 29.9 VOL% (42.0-52.0); Hemoglobin 9.6 GM/DL (14.0-18.0); Immature Granulocytes Absolute 0.14 #; Lymphocytes # 1.4 10*3/uL (1.4-4.0); Lymphocytes % 19.6 % (21.2-54.2); Mean Corpuscular HGB Conc 32.1 GM/DL (32-36); Mean Corpuscular Hemoglobin 31 PG (27-34); Mean Corpuscular Volume 95.8 FL (87-102); Mean Platelet Volume 10.1 FL (9.6-12.0); Monocytes # 1.1 10*3/uL (0.11-0.8); Monocytes % 15.3 % (1.7-12.7); Neutrophils # 4.2 10*3/uL (1.4-7.4); Neutrophils % 60.6 % (38.7-73.9); Platelet Count 277 T/CUMM (130-400); Red Blood Count 3.12 MC/CUMM (3.8-5.5); Red Cell Distribution Width 16.6 % (9.3-17.3)
[2017-11-08 07:39] LABS: Albumin 1.6 G/DL (3.4-5.0); Calcium 7.8 MG/DL (8.5-10.1); Osmolality,Calculated 282.8 MOS/KG (273-304); Potassium 3.4 MMOL/L (3.5-5.1)
[2017-11-08] MEDS: MAGNESIUM SULF RIDER 4 GM in PREMIX 1 EACH IV PRN (08:44)
[2017-11-08] MEDS: POTASSIUM CHLORIDE RIDER 10 MEQ in PREMIX 1 EACH IV PRN (08:46)
[2017-11-08] MEDS: MAGNESIUM OXIDE 400 MG TABLET PO SCH ×3 (08:51→20:42)
[2017-11-08] MEDS: predniSONE 10 MG TABLET PO SCH (08:52)
[2017-11-08] MEDS: SODIUM HYPOCHLORITE 0.25% IRRIG 473 ML BOTTLE TOP SCH (08:52)
[2017-11-08] MEDS: APIXABAN 5 MG TABLET PO SCH ×2 (08:52→20:43)
[2017-11-08] MEDS: COLCHICINE 0.6 MG TABLET PO SCH ×2 (08:52→20:42)
[2017-11-08] MEDS: PANTOPRAZOLE 40 MG TABLET PO SCH (08:52)
[2017-11-08] MEDS: SKIN HEALING OINT (AQUAPHOR) 50 GM TUBE TOP SCH (08:52)
[2017-11-08] MEDS: POTASSIUM CHLORIDE 20 MEQ TABLET PO SCH ×2 (08:52→20:43)
[2017-11-08] MEDS: POTASSIUM CHLORIDE RIDER 20 MEQ in PREMIX 1 EACH IV PRN (09:58)
[2017-11-09 05:28] LABS: Basophils % 0.3 % (0.0-0.8); Eosinophils # 0.2 10*3/uL (0.0-0.87); Eosinophils % 2.3 % (0.00-10.9); Hematocrit 29.9 VOL% (42.0-52.0); Hemoglobin 9.7 GM/DL (14.0-18.0); Immature Granulocytes % 1.8 %; Immature Granulocytes Absolute 0.13 #; Lymphocytes # 1.5 10*3/uL (1.4-4.0); Lymphocytes % 20.5 % (21.2-54.2); Mean Corpuscular HGB Conc 32.4 GM/DL (32-36); Mean Corpuscular Hemoglobin 31 PG (27-34); Mean Corpuscular Volume 96.1 FL (87-102); Mean Platelet Volume 10.7 FL (9.6-12.0); Monocytes # 1.1 10*3/uL (0.11-0.8); Monocytes % 15.5 % (1.7-12.7); Neutrophils # 4.4 10*3/uL (1.4-7.4); Neutrophils % 59.6 % (38.7-73.9); Platelet Count 302 T/CUMM (130-400); Red Blood Count 3.11 MC/CUMM (3.8-5.5); Red Cell Distribution Width 16.6 % (9.3-17.3); White Blood Count 7.3 T/CUMM (4-12)
[2017-11-09 05:56] LABS: Albumin 1.6 G/DL (3.4-5.0); Bilirubin,Total 0.9 MG/DL (0.2-1.0); Osmolality,Calculated 282.8 MOS/KG (273-304); Potassium 3.9 MMOL/L (3.5-5.1); Total Protein 5.1 G/DL (6.4-8.3)
[2017-11-09] MEDS: POTASSIUM CHLORIDE 20 MEQ TABLET PO SCH ×2 (09:45→20:57)
[2017-11-09] MEDS: PANTOPRAZOLE 40 MG TABLET PO SCH (09:45)
[2017-11-09] MEDS: COLCHICINE 0.6 MG TABLET PO SCH ×2 (09:45→20:57)
[2017-11-09] MEDS: MAGNESIUM OXIDE 400 MG TABLET PO SCH ×3 (09:46→20:57)
[2017-11-09] MEDS: predniSONE 10 MG TABLET PO SCH (09:46)
[2017-11-09] MEDS: APIXABAN 5 MG TABLET PO SCH ×2 (09:46→20:57)
[2017-11-09] MEDS: POTASSIUM CHLORIDE RIDER 20 MEQ in PREMIX 1 EACH IV PRN (10:04)
[2017-11-09] MEDS: MAGNESIUM SULF RIDER 2 GM in PREMIX 1 EACH IV PRN (10:09)
[2017-11-09] MEDS: SKIN HEALING OINT (AQUAPHOR) 50 GM TUBE TOP SCH (17:00)
[2017-11-09] MEDS: SODIUM HYPOCHLORITE 0.25% IRRIG 473 ML BOTTLE TOP SCH (17:00)
[2017-11-09] MEDS ORDERED: TUBERCULIN SKIN TEST 0.1 ML SYRINGE INTRADERM ONE (19:00)
[2017-11-10 02:47] LABS: Basophils % 0.2 % (0.0-0.8); Eosinophils # 0.2 10*3/uL (0.0-0.87); Eosinophils % 1.8 % (0.00-10.9); Hemoglobin 9.6 GM/DL (14.0-18.0); Immature Granulocytes % 1.2 %; Lymphocytes # 1.8 10*3/uL (1.4-4.0); Lymphocytes % 20.7 % (21.2-54.2); Mean Corpuscular Hemoglobin 31 PG (27-34); Mean Corpuscular Volume 96.5 FL (87-102); Mean Platelet Volume 10.5 FL (9.6-12.0); Monocytes # 1.1 10*3/uL (0.11-0.8); Monocytes % 13.1 % (1.7-12.7); Neutrophils # 5.4 10*3/uL (1.4-7.4); Platelet Count 300 T/CUMM (130-400); Red Blood Count 3.11 MC/CUMM (3.8-5.5); Red Cell Distribution Width 16.6 % (9.3-17.3); White Blood Count 8.6 T/CUMM (4-12)
[2017-11-10 03:15] LABS: Albumin 1.7 G/DL (3.4-5.0); Bilirubin,Total 0.6 MG/DL (0.2-1.0); Calcium 8.1 MG/DL (8.5-10.1); Potassium 4.6 MMOL/L (3.5-5.1); Total Protein 5.4 G/DL (6.4-8.3)
[2017-11-10] MEDS: APIXABAN 5 MG TABLET PO SCH ×2 (09:26→21:15)
[2017-11-10] MEDS: PANTOPRAZOLE 40 MG TABLET PO SCH (09:26)
[2017-11-10] MEDS: COLCHICINE 0.6 MG TABLET PO SCH ×2 (09:27→21:15)
[2017-11-10] MEDS: POTASSIUM CHLORIDE 20 MEQ TABLET PO SCH ×2 (09:27→21:15)
[2017-11-10] MEDS: predniSONE 10 MG TABLET PO SCH (09:27)
[2017-11-10] MEDS: MAGNESIUM OXIDE 400 MG TABLET PO SCH ×2 (09:27→21:15)
[2017-11-10] MEDS: MAGNESIUM SULF RIDER 2 GM in PREMIX 1 EACH IV PRN (11:52)
[2017-11-10] MEDS: SKIN HEALING OINT (AQUAPHOR) 50 GM TUBE TOP SCH (19:16)
[2017-11-10] MEDS: SODIUM HYPOCHLORITE 0.25% IRRIG 473 ML BOTTLE TOP SCH (19:16)
[2017-11-11 04:18] LABS: Basophils % 0.4 % (0.0-0.8); Eosinophils # 0.2 10*3/uL (0.0-0.87); Eosinophils % 2.9 % (0.00-10.9); Hematocrit 30.9 VOL% (42.0-52.0); Hemoglobin 9.5 GM/DL (14.0-18.0); Immature Granulocytes % 1.4 %; Immature Granulocytes Absolute 0.12 #; Lymphocytes # 1.9 10*3/uL (1.4-4.0); Lymphocytes % 22.1 % (21.2-54.2); Mean Corpuscular HGB Conc 30.7 GM/DL (32-36); Mean Corpuscular Hemoglobin 30 PG (27-34); Mean Corpuscular Volume 98.4 FL (87-102); Mean Platelet Volume 10.7 FL (9.6-12.0); Monocytes # 1.2 10*3/uL (0.11-0.8); Monocytes % 14.2 % (1.7-12.7); Neutrophils # 4.9 10*3/uL (1.4-7.4); Platelet Count 284 T/CUMM (130-400); Red Blood Count 3.14 MC/CUMM (3.8-5.5); Red Cell Distribution Width 16.4 % (9.3-17.3); White Blood Count 8.4 T/CUMM (4-12)
[2017-11-11 05:00] LABS: Albumin 1.7 G/DL (3.4-5.0); Bilirubin,Total 0.4 MG/DL (0.2-1.0); Calcium 8.5 MG/DL (8.5-10.1); Potassium 4.5 MMOL/L (3.5-5.1); Total Protein 5.5 G/DL (6.4-8.3)
[2017-11-11] MEDS: predniSONE 10 MG TABLET PO SCH (09:14)
[2017-11-11] MEDS: APIXABAN 5 MG TABLET PO SCH ×2 (09:14→22:23)
[2017-11-11] MEDS: MAGNESIUM OXIDE 400 MG TABLET PO SCH ×2 (09:14→22:23)
[2017-11-11] MEDS: PANTOPRAZOLE 40 MG TABLET PO SCH (09:14)
[2017-11-11] MEDS: COLCHICINE 0.6 MG TABLET PO SCH ×2 (09:14→22:23)
[2017-11-11] MEDS: POTASSIUM CHLORIDE 20 MEQ TABLET PO SCH ×2 (09:14→22:22)
[2017-11-11] MEDS: MAGNESIUM SULF RIDER 2 GM in PREMIX 1 EACH IV PRN (09:17)
[2017-11-11] MEDS: SODIUM HYPOCHLORITE 0.25% IRRIG 473 ML BOTTLE TOP SCH (17:19)
[2017-11-11] MEDS: SKIN HEALING OINT (AQUAPHOR) 50 GM TUBE TOP SCH (17:19)
[2017-11-12 07:12] LABS: Basophils % 0.3 % (0.0-0.8); Eosinophils # 0.2 10*3/uL (0.0-0.87); Eosinophils % 1.7 % (0.00-10.9); Hematocrit 32.2 VOL% (42.0-52.0); Hemoglobin 10.2 GM/DL (14.0-18.0); Immature Granulocytes % 1.4 %; Immature Granulocytes Absolute 0.13 #; Lymphocytes # 1.6 10*3/uL (1.4-4.0); Lymphocytes % 17.6 % (21.2-54.2); Mean Corpuscular HGB Conc 31.7 GM/DL (32-36); Mean Corpuscular Hemoglobin 31 PG (27-34); Mean Corpuscular Volume 96.7 FL (87-102); Mean Platelet Volume 10.5 FL (9.6-12.0); Monocytes # 1.1 10*3/uL (0.11-0.8); Monocytes % 12.6 % (1.7-12.7); Neutrophils % 66.4 % (38.7-73.9); Platelet Count 289 T/CUMM (130-400); Red Blood Count 3.33 MC/CUMM (3.8-5.5); Red Cell Distribution Width 16.2 % (9.3-17.3)
[2017-11-12 07:39] LABS: Alanine Aminotransferase 12 U/L (16-61); Albumin 1.8 G/DL (3.4-5.0); Alkaline Phosphatase 92 U/L (45-117); Aspartate Amino Transferase 9 U/L (0-37); Bilirubin,Total < 0.39 MG/DL (0.2-1.0); Blood Urea Nitrogen 8 MG/DL (7-18); Calcium 8.4 MG/DL (8.5-10.1); Glucose 92 MG/DL (74-106); Osmolality,Calculated 278.3 MOS/KG (273-304); Potassium 4.3 MMOL/L (3.5-5.1); Sodium 141 MMOL/L (136-145); Total Protein 5.8 G/DL (6.4-8.3)
[2017-11-12] MEDS: SKIN HEALING OINT (AQUAPHOR) 50 GM TUBE TOP SCH (10:49)
[2017-11-12] MEDS: APIXABAN 5 MG TABLET PO SCH ×2 (10:49→21:47)
[2017-11-12] MEDS: MAGNESIUM OXIDE 400 MG TABLET PO SCH ×2 (10:49→21:46)
[2017-11-12] MEDS: POTASSIUM CHLORIDE 20 MEQ TABLET PO SCH ×2 (10:50→21:47)
[2017-11-12] MEDS: COLCHICINE 0.6 MG TABLET PO SCH ×2 (10:50→21:47)
[2017-11-12] MEDS: SODIUM HYPOCHLORITE 0.25% IRRIG 473 ML BOTTLE TOP SCH (10:50)
[2017-11-12] MEDS: predniSONE 10 MG TABLET PO SCH (10:50)
[2017-11-12] MEDS: PANTOPRAZOLE 40 MG TABLET PO SCH (10:50)
[2017-11-12] MEDS: MELATONIN 3 MG TABLET PO PRN (21:46)
[2017-11-13 06:58] LABS: Albumin 1.6 G/DL (3.4-5.0); Bilirubin,Total 0.7 MG/DL (0.2-1.0); Calcium 8.4 MG/DL (8.5-10.1); Osmolality,Calculated 278.3 MOS/KG (273-304); Potassium 4.5 MMOL/L (3.5-5.1); Total Protein 5.6 G/DL (6.4-8.3)
[2017-11-13 09:51] LABS: Basophils % 0.4 % (0.0-0.8); Eosinophils % 0.5 % (0.00-10.9); Hematocrit 30.3 VOL% (42.0-52.0); Hemoglobin 9.4 GM/DL (14.0-18.0); Immature Granulocytes % 0.9 %; Immature Granulocytes Absolute 0.07 #; Lymphocytes # 1.8 10*3/uL (1.4-4.0); Lymphocytes % 22.3 % (21.2-54.2); Mean Corpuscular Hemoglobin 31 PG (27-34); Mean Corpuscular Volume 98.7 FL (87-102); Mean Platelet Volume 11.3 FL (9.6-12.0); Monocytes # 1.2 10*3/uL (0.11-0.8); Monocytes % 14.1 % (1.7-12.7); Neutrophils % 61.8 % (38.7-73.9); Platelet Count 267 T/CUMM (130-400); Red Blood Count 3.07 MC/CUMM (3.8-5.5); Red Cell Distribution Width 16.1 % (9.3-17.3); White Blood Count 8.1 T/CUMM (4-12)
[2017-11-13] MEDS: MAGNESIUM OXIDE 400 MG TABLET PO SCH ×2 (10:03→23:06)
[2017-11-13] MEDS: PANTOPRAZOLE 40 MG TABLET PO SCH (10:03)
[2017-11-13] MEDS: SKIN HEALING OINT (AQUAPHOR) 50 GM TUBE TOP SCH (10:04)
[2017-11-13] MEDS: SODIUM HYPOCHLORITE 0.25% IRRIG 473 ML BOTTLE TOP SCH (10:04)
[2017-11-13] MEDS: COLCHICINE 0.6 MG TABLET PO SCH ×2 (10:04→23:06)
[2017-11-13] MEDS: predniSONE 10 MG TABLET PO SCH (10:04)
[2017-11-13] MEDS: POTASSIUM CHLORIDE 20 MEQ TABLET PO SCH ×2 (10:04→23:06)
[2017-11-13] MEDS: APIXABAN 5 MG TABLET PO SCH ×2 (10:04→23:06)
[2017-11-13] MEDS: MAGNESIUM SULF RIDER 2 GM in PREMIX 1 EACH IV PRN (16:19)
[2017-11-13] MEDS: MELATONIN 3 MG TABLET PO PRN (23:06)
[2017-11-14 05:13] LABS: Basophils % 0.3 % (0.0-0.8); Eosinophils # 0.1 10*3/uL (0.0-0.87); Eosinophils % 1.5 % (0.00-10.9); Hematocrit 31.2 VOL% (42.0-52.0); Immature Granulocytes % 1.3 %; Immature Granulocytes Absolute 0.11 #; Lymphocytes # 2.2 10*3/uL (1.4-4.0); Lymphocytes % 25.3 % (21.2-54.2); Mean Corpuscular HGB Conc 32.1 GM/DL (32-36); Mean Corpuscular Hemoglobin 31 PG (27-34); Mean Corpuscular Volume 95.4 FL (87-102); Mean Platelet Volume 10.8 FL (9.6-12.0); Monocytes # 1.1 10*3/uL (0.11-0.8); Monocytes % 13.2 % (1.7-12.7); Neutrophils % 58.4 % (38.7-73.9); Platelet Count 293 T/CUMM (130-400); Red Blood Count 3.27 MC/CUMM (3.8-5.5); Red Cell Distribution Width 16.2 % (9.3-17.3); White Blood Count 8.6 T/CUMM (4-12)
[2017-11-14 05:15] LABS: Basophils % 0.5 % (0.0-0.8); Eosinophils # 0.1 10*3/uL (0.0-0.87); Eosinophils % 1.5 % (0.00-10.9); Hematocrit 31.7 VOL% (42.0-52.0); Hemoglobin 9.9 GM/DL (14.0-18.0); Immature Granulocytes % 1.2 %; Lymphocytes # 2.1 10*3/uL (1.4-4.0); Lymphocytes % 24.7 % (21.2-54.2); Mean Corpuscular HGB Conc 31.2 GM/DL (32-36); Mean Corpuscular Hemoglobin 31 PG (27-34); Mean Corpuscular Volume 98.1 FL (87-102); Mean Platelet Volume 10.7 FL (9.6-12.0); Monocytes # 1.1 10*3/uL (0.11-0.8); Monocytes % 13.1 % (1.7-12.7); Neutrophils # 5.1 10*3/uL (1.4-7.4); Platelet Count 272 T/CUMM (130-400); Red Blood Count 3.23 MC/CUMM (3.8-5.5); White Blood Count 8.7 T/CUMM (4-12)
[2017-11-14 05:45] LABS: Ferritin 1221.3 ng/ml (26-388); Osmolality,Calculated 277.4 MOS/KG (273-304); Potassium 4.8 MMOL/L (3.5-5.1)
[2017-11-14 05:47] LABS: Albumin 1.8 G/DL (3.4-5.0); Bilirubin,Total 0.5 MG/DL (0.2-1.0); Calcium 8.7 MG/DL (8.5-10.1); Osmolality,Calculated 276.4 MOS/KG (273-304); Potassium 4.7 MMOL/L (3.5-5.1)
[2017-11-14 06:18] LABS: Folate 6.6 NG/ML (5.4-24.0); Vitamin B12 395 PG/ML (211-911)
[2017-11-14 07:07] LABS: Sedimentation Rate-Westergren 107 MM/HR (0-20)
[2017-11-14] MEDS: predniSONE 10 MG TABLET PO SCH (09:40)
[2017-11-14] MEDS: COLCHICINE 0.6 MG TABLET PO SCH ×2 (09:40→21:18)
[2017-11-14] MEDS: APIXABAN 5 MG TABLET PO SCH ×2 (09:40→21:19)
[2017-11-14] MEDS: MAGNESIUM OXIDE 400 MG TABLET PO SCH ×2 (09:40→21:18)
[2017-11-14] MEDS: PANTOPRAZOLE 40 MG TABLET PO SCH (09:40)
[2017-11-14] MEDS: POTASSIUM CHLORIDE 20 MEQ TABLET PO SCH ×2 (09:40→21:19)
[2017-11-14 10:21] LABS: Hemoglobin A1 (Alkaline) 97.8 % (96.5-98.5); Hemoglobin A2 (Alkaline) 2.2 % (1.5-3.5)
[2017-11-14] MEDS: SKIN HEALING OINT (AQUAPHOR) 50 GM TUBE TOP SCH (11:23)
[2017-11-14] MEDS: SODIUM HYPOCHLORITE 0.25% IRRIG 473 ML BOTTLE TOP SCH (11:23)
[2017-11-15] MEDS ORDERED: MORPHINE 4 MG/1 ML VIAL IV ONE (06:00)
[2017-11-15] MEDS: MAGNESIUM OXIDE 400 MG TABLET PO SCH ×2 (10:17→23:21)
[2017-11-15] MEDS: PANTOPRAZOLE 40 MG TABLET PO SCH (10:17)
[2017-11-15] MEDS: POTASSIUM CHLORIDE 20 MEQ TABLET PO SCH ×2 (10:18→23:21)
[2017-11-15] MEDS: predniSONE 10 MG TABLET PO SCH (10:18)
[2017-11-15] MEDS: COLCHICINE 0.6 MG TABLET PO SCH ×2 (10:18→23:21)
[2017-11-15] MEDS: APIXABAN 5 MG TABLET PO SCH ×2 (10:18→23:21)
[2017-11-15] MEDS: MORPHINE 4 MG/1 ML VIAL IV PRN (15:09)
[2017-11-15] MEDS: SKIN HEALING OINT (AQUAPHOR) 50 GM TUBE TOP SCH (15:10)
[2017-11-15] MEDS: SODIUM HYPOCHLORITE 0.25% IRRIG 473 ML BOTTLE TOP SCH (15:10)
[2017-11-15] MEDS: MELATONIN 3 MG TABLET PO PRN (23:22)
[2017-11-16] MEDS: POTASSIUM CHLORIDE 20 MEQ TABLET PO SCH ×2 (09:25→20:50)
[2017-11-16] MEDS: predniSONE 10 MG TABLET PO SCH (09:25)
[2017-11-16] MEDS: MAGNESIUM OXIDE 400 MG TABLET PO SCH ×2 (09:25→20:50)
[2017-11-16] MEDS: PANTOPRAZOLE 40 MG TABLET PO SCH (09:26)
[2017-11-16] MEDS: COLCHICINE 0.6 MG TABLET PO SCH ×2 (09:26→20:50)
[2017-11-16] MEDS: SKIN HEALING OINT (AQUAPHOR) 50 GM TUBE TOP SCH (09:26)
[2017-11-16] MEDS: APIXABAN 5 MG TABLET PO SCH ×2 (09:26→20:50)
[2017-11-16] MEDS: SODIUM HYPOCHLORITE 0.25% IRRIG 473 ML BOTTLE TOP SCH (09:27)
[2017-11-16] MEDS: MORPHINE 4 MG/1 ML VIAL IV PRN (12:41)
[2017-11-17 06:05] LABS: Basophils % 0.5 % (0.0-0.8); Eosinophils # 0.1 10*3/uL (0.0-0.87); Eosinophils % 0.9 % (0.00-10.9); Hematocrit 33.7 VOL% (42.0-52.0); Hemoglobin 10.3 GM/DL (14.0-18.0); Immature Granulocytes % 1.7 %; Immature Granulocytes Absolute 0.14 #; Lymphocytes # 1.6 10*3/uL (1.4-4.0); Lymphocytes % 19.8 % (21.2-54.2); Mean Corpuscular HGB Conc 30.6 GM/DL (32-36); Mean Corpuscular Hemoglobin 30 PG (27-34); Mean Corpuscular Volume 98.3 FL (87-102); Mean Platelet Volume 11.4 FL (9.6-12.0); Monocytes # 1.2 10*3/uL (0.11-0.8); Monocytes % 14.4 % (1.7-12.7); Neutrophils # 5.2 10*3/uL (1.4-7.4); Neutrophils % 62.7 % (38.7-73.9); Platelet Count 285 T/CUMM (130-400); Red Blood Count 3.43 MC/CUMM (3.8-5.5); Red Cell Distribution Width 15.8 % (9.3-17.3); White Blood Count 8.2 T/CUMM (4-12)
[2017-11-17 06:31] LABS: Calcium 8.8 MG/DL (8.5-10.1); Osmolality,Calculated 283.1 MOS/KG (273-304); Potassium 4.5 MMOL/L (3.5-5.1)
[2017-11-17] MEDS: COLCHICINE 0.6 MG TABLET PO SCH ×2 (10:17→20:03)
[2017-11-17] MEDS: SKIN HEALING OINT (AQUAPHOR) 50 GM TUBE TOP SCH (10:17)
[2017-11-17] MEDS: MAGNESIUM OXIDE 400 MG TABLET PO SCH ×2 (10:18→20:03)
[2017-11-17] MEDS: predniSONE 10 MG TABLET PO SCH (10:18)
[2017-11-17] MEDS: PANTOPRAZOLE 40 MG TABLET PO SCH (10:18)
[2017-11-17] MEDS: POTASSIUM CHLORIDE 20 MEQ TABLET PO SCH ×2 (10:18→20:03)
[2017-11-17] MEDS: APIXABAN 5 MG TABLET PO SCH ×2 (10:18→20:03)
[2017-11-17] MEDS: SODIUM HYPOCHLORITE 0.25% IRRIG 473 ML BOTTLE TOP SCH (10:19)
[2017-11-18] MEDS: POTASSIUM CHLORIDE 20 MEQ TABLET PO SCH ×2 (08:39→20:12)
[2017-11-18] MEDS: MAGNESIUM OXIDE 400 MG TABLET PO SCH ×2 (08:39→20:12)
[2017-11-18] MEDS: SKIN HEALING OINT (AQUAPHOR) 50 GM TUBE TOP SCH (08:39)
[2017-11-18] MEDS: APIXABAN 5 MG TABLET PO SCH ×2 (08:39→20:15)
[2017-11-18] MEDS: predniSONE 10 MG TABLET PO SCH (08:40)
[2017-11-18] MEDS: COLCHICINE 0.6 MG TABLET PO SCH ×2 (08:40→20:12)
[2017-11-18] MEDS: PANTOPRAZOLE 40 MG TABLET PO SCH (08:40)
[2017-11-18] MEDS: SODIUM HYPOCHLORITE 0.25% IRRIG 473 ML BOTTLE TOP SCH (16:21)
[2017-11-18] MEDS: MELATONIN 3 MG TABLET PO PRN (20:12)
[2017-11-19] MEDS: PANTOPRAZOLE 40 MG TABLET PO SCH (09:55)
[2017-11-19] MEDS: COLCHICINE 0.6 MG TABLET PO SCH ×2 (09:55→20:57)
[2017-11-19] MEDS: predniSONE 10 MG TABLET PO SCH (09:56)
[2017-11-19] MEDS: MAGNESIUM OXIDE 400 MG TABLET PO SCH ×2 (09:56→20:58)
[2017-11-19] MEDS: POTASSIUM CHLORIDE 20 MEQ TABLET PO SCH ×2 (09:56→21:00)
[2017-11-19] MEDS: SKIN HEALING OINT (AQUAPHOR) 50 GM TUBE TOP SCH (09:57)
[2017-11-19] MEDS: APIXABAN 5 MG TABLET PO SCH ×2 (09:57→20:58)
[2017-11-19] MEDS: SODIUM HYPOCHLORITE 0.25% IRRIG 473 ML BOTTLE TOP SCH (09:57)
[2017-11-20] MEDS: APIXABAN 5 MG TABLET PO SCH ×2 (09:12→21:41)
[2017-11-20] MEDS: COLCHICINE 0.6 MG TABLET PO SCH ×2 (09:12→21:40)
[2017-11-20] MEDS: predniSONE 10 MG TABLET PO SCH (09:12)
[2017-11-20] MEDS: POTASSIUM CHLORIDE 20 MEQ TABLET PO SCH ×2 (09:12→21:41)
[2017-11-20] MEDS: MAGNESIUM OXIDE 400 MG TABLET PO SCH ×2 (09:12→21:41)
[2017-11-20] MEDS: PANTOPRAZOLE 40 MG TABLET PO SCH (09:13)
[2017-11-20] MEDS: SKIN HEALING OINT (AQUAPHOR) 50 GM TUBE TOP SCH (10:49)
[2017-11-20] MEDS: SODIUM HYPOCHLORITE 0.25% IRRIG 473 ML BOTTLE TOP SCH (10:49)
[2017-11-21] MEDS: MORPHINE 4 MG/1 ML VIAL IV PRN (06:36)
[2017-11-21] MEDS: COLCHICINE 0.6 MG TABLET PO SCH ×2 (09:25→21:24)
[2017-11-21] MEDS: MAGNESIUM OXIDE 400 MG TABLET PO SCH ×2 (09:25→21:24)
[2017-11-21] MEDS: PANTOPRAZOLE 40 MG TABLET PO SCH (09:25)
[2017-11-21] MEDS: APIXABAN 5 MG TABLET PO SCH ×2 (09:25→21:24)
[2017-11-21] MEDS: POTASSIUM CHLORIDE 20 MEQ TABLET PO SCH ×2 (09:25→21:24)
[2017-11-21] MEDS: predniSONE 10 MG TABLET PO SCH (09:25)
[2017-11-21] MEDS: SODIUM HYPOCHLORITE 0.25% IRRIG 473 ML BOTTLE TOP SCH (09:26)
[2017-11-21] MEDS: SKIN HEALING OINT (AQUAPHOR) 50 GM TUBE TOP SCH (09:26)
[2017-11-22] MEDS: COLCHICINE 0.6 MG TABLET PO SCH (08:31)
[2017-11-22] MEDS: POTASSIUM CHLORIDE 20 MEQ TABLET PO SCH (08:31)
[2017-11-22] MEDS: MAGNESIUM OXIDE 400 MG TABLET PO SCH (08:32)
[2017-11-22] MEDS: PANTOPRAZOLE 40 MG TABLET PO SCH (08:32)
[2017-11-22] MEDS: APIXABAN 5 MG TABLET PO SCH (08:32)
[2017-11-22] MEDS: predniSONE 10 MG TABLET PO SCH (08:32)
[2017-11-22] MEDS: SKIN HEALING OINT (AQUAPHOR) 50 GM TUBE TOP SCH (08:32)
[2017-11-22] MEDS: SODIUM HYPOCHLORITE 0.25% IRRIG 473 ML BOTTLE TOP SCH (08:33)
[2017-11-22 14:28] VITALS: BP 103/65
== END 2017-11-22 14:40 | DRG 720 ==
LOC: EDBD → EDUNIT# → N.ED 04:47 → N.EDINP 06:00 → SUATTDRO 06:00 → N.ICU 06:20 → N.2E 10-28 16:05
PROVIDERS: ADMIT Family Medicine; ATTEND Hospitalist

== ENCOUNTER 2017-12-15 20:16 | Inpatient (IN) ==
[2017-12-15] MEDS ORDERED: ACETAMINOPHEN 325 MG TABLET PO PRN (22:03)
[2017-12-15] MEDS ORDERED: ONDANSETRON 4 MG/2 ML VIAL IV PRN (22:03)
[2017-12-15] MEDS ORDERED: ALBUTEROL 2.5 MG/3 ML NEB RESP TX PRN (22:03)
[2017-12-15] MEDS ORDERED: SODIUM CHLORIDE 0.9% 500 ML IV ONE (22:19)
[2017-12-15] MEDS ORDERED: PIPERACILLIN/TAZOBACTAM 3,375 MG in SODIUM CHLORIDE 0.9% 100 ML IV SCH (22:30)
[2017-12-15] MEDS: NOREPINEPHRINE 8 MG in SODIUM CHLORIDE 0.9% 242 ML IV SCH (22:34)
[2017-12-15] MEDS: PANTOPRAZOLE 40 MG VIAL IV SCH (22:54)
[2017-12-15] MEDS: SODIUM CHLORIDE 0.9% 1,000 ML IV SCH (22:55)
[2017-12-15 23:38] LABS: Albumin 1.5 G/DL (3.4-5.0); Bilirubin,Total 0.5 MG/DL (0.2-1.0); Calcium 7.8 MG/DL (8.5-10.1); Osmolality,Calculated 316.7 MOS/KG (273-304); Potassium 5.2 MMOL/L (3.5-5.1)
[2017-12-16] MEDS ORDERED: SODIUM CHLORIDE 0.9% 1,000 ML IV ONE (01:52)
[2017-12-16 05:00] LABS: Basophils # 0.1 10*3/uL (0.0-0.2); Basophils % 0.4 % (0.0-0.8); Hematocrit 28.4 VOL% (42.0-52.0); Hemoglobin 8.6 GM/DL (14.0-18.0); Immature Granulocytes % 4.3 %; Immature Granulocytes Absolute 0.48 #; Lymphocytes # 1.1 10*3/uL (1.4-4.0); Lymphocytes % 9.9 % (21.2-54.2); Mean Corpuscular HGB Conc 30.3 GM/DL (32-36); Mean Corpuscular Hemoglobin 30 PG (27-34); Mean Corpuscular Volume 97.6 FL (87-102); Monocytes # 0.4 10*3/uL (0.11-0.8); Monocytes % 3.9 % (1.7-12.7); Neutrophils # 9.1 10*3/uL (1.4-7.4); Neutrophils % 81.5 % (38.7-73.9); Platelet Count 251 T/CUMM (130-400); Red Blood Count 2.91 MC/CUMM (3.8-5.5); Red Cell Distribution Width 17.4 % (9.3-17.3); White Blood Count 11.2 T/CUMM (4-12)
[2017-12-16] MEDS: VANCOMYCIN INJ 1,250 MG in SODIUM CHLORIDE 0.9% 250 ML IV SCH ×2 (05:09→17:25)
[2017-12-16 05:26] LABS: Albumin 1.4 G/DL (3.4-5.0); Calcium 8.1 MG/DL (8.5-10.1); Osmolality,Calculated 318.4 MOS/KG (273-304); Potassium 4.8 MMOL/L (3.5-5.1); Total Protein 5.8 G/DL (6.4-8.3)
[2017-12-16 05:29] LABS: Anisocytosis Slight; Band Neutrophils 10 % (0-10); Lymphocytes 12 % (20-55); Macrocytosis 2+; Platelet Estimate Normal; Segmented Neutrophils 69 % (50-85); Total Cells Counted 100
[2017-12-16] MEDS: SODIUM CHLORIDE 0.9% 1,000 ML IV SCH ×2 (07:08→15:28)
[2017-12-16] MEDS: PIPERACILLIN/TAZOBACTAM 3,375 MG in SODIUM CHLORIDE 0.9% 100 ML IV SCH ×2 (07:09→15:28)
[2017-12-16] MEDS: NOREPINEPHRINE 8 MG in SODIUM CHLORIDE 0.9% 242 ML IV SCH ×3 (08:26→21:52)
[2017-12-16] MEDS ORDERED: ACETAMINOPHEN 325 MG TABLET PO PRN (08:48)
[2017-12-16] MEDS: predniSONE 10 MG TABLET PO SCH (10:13)
[2017-12-16] MEDS: APIXABAN 5 MG TABLET PO SCH ×2 (10:13→20:40)
[2017-12-16] MEDS: COLCHICINE 0.6 MG TABLET PO SCH ×2 (10:13→20:40)
[2017-12-16] MEDS ORDERED: SKIN HEALING OINT (AQUAPHOR) 50 GM TUBE TOP PRN (11:49)
[2017-12-16] MEDS: SODIUM HYPOCHLORITE 0.25% IRRIG 473 ML BOTTLE TOP SCH (20:40)
[2017-12-16] MEDS: PANTOPRAZOLE 40 MG VIAL IV SCH (21:52)
[2017-12-17] MEDS: SODIUM CHLORIDE 0.9% 1,000 ML IV SCH ×2 (00:19→09:40)
[2017-12-17] MEDS: PIPERACILLIN/TAZOBACTAM 3,375 MG in SODIUM CHLORIDE 0.9% 100 ML IV SCH ×3 (00:19→15:24)
[2017-12-17] MEDS: VANCOMYCIN INJ 1,250 MG in SODIUM CHLORIDE 0.9% 250 ML IV SCH (04:46)
[2017-12-17 04:51] LABS: Basophils % 0.2 % (0.0-0.8); Hematocrit 23.3 VOL% (42.0-52.0); Hemoglobin 6.9 GM/DL (14.0-18.0); Immature Granulocytes % 1.8 %; Immature Granulocytes Absolute 0.11 #; Lymphocytes # 0.6 10*3/uL (1.4-4.0); Lymphocytes % 8.9 % (21.2-54.2); Mean Corpuscular HGB Conc 29.6 GM/DL (32-36); Mean Corpuscular Hemoglobin 30 PG (27-34); Mean Corpuscular Volume 100.4 FL (87-102); Mean Platelet Volume 11.5 FL (9.6-12.0); Monocytes # 0.3 10*3/uL (0.11-0.8); Monocytes % 5.4 % (1.7-12.7); Neutrophils # 5.2 10*3/uL (1.4-7.4); Neutrophils % 83.7 % (38.7-73.9); Platelet Count 163 T/CUMM (130-400); Red Blood Count 2.32 MC/CUMM (3.8-5.5); Red Cell Distribution Width 17.5 % (9.3-17.3); White Blood Count 6.2 T/CUMM (4-12)
[2017-12-17 05:06] LABS: Calcium 7.5 MG/DL (8.5-10.1); Osmolality,Calculated 310.7 MOS/KG (273-304); Potassium 3.6 MMOL/L (3.5-5.1)
[2017-12-17] MEDS: COLCHICINE 0.6 MG TABLET PO SCH ×2 (08:43→20:22)
[2017-12-17] MEDS: APIXABAN 5 MG TABLET PO SCH ×2 (08:43→20:22)
[2017-12-17] MEDS: predniSONE 10 MG TABLET PO SCH (08:44)
[2017-12-17] MEDS: SODIUM HYPOCHLORITE 0.25% IRRIG 473 ML BOTTLE TOP SCH ×2 (08:45→20:22)
[2017-12-17] MEDS ORDERED: MAGNESIUM SULF RIDER 2 GM in PREMIX 1 EACH IV ONE (08:57)
[2017-12-17] MEDS: PANTOPRAZOLE 40 MG TABLET PO SCH (09:40)
[2017-12-17] MEDS: POTASSIUM CHLORIDE 20 MEQ TABLET PO SCH ×4 (09:40→20:23)
[2017-12-17] MEDS: SODIUM CHLORIDE 0.45% 1,000 ML IV SCH ×2 (09:41→22:01)
[2017-12-17 11:05] LABS: Basophils % 0.2 % (0.0-0.8); Eosinophils % 0.3 % (0.00-10.9); Hematocrit 25.2 VOL% (42.0-52.0); Hemoglobin 7.3 GM/DL (14.0-18.0); Immature Granulocytes % 2.1 %; Immature Granulocytes Absolute 0.18 #; Lymphocytes # 0.6 10*3/uL (1.4-4.0); Lymphocytes % 7.2 % (21.2-54.2); Mean Corpuscular Hemoglobin 30 PG (27-34); Mean Corpuscular Volume 102.9 FL (87-102); Mean Platelet Volume 11.9 FL (9.6-12.0); Monocytes # 0.3 10*3/uL (0.11-0.8); Monocytes % 3.5 % (1.7-12.7); Neutrophils # 7.4 10*3/uL (1.4-7.4); Neutrophils % 86.7 % (38.7-73.9); Platelet Count 191 T/CUMM (130-400); Red Blood Count 2.45 MC/CUMM (3.8-5.5); Red Cell Distribution Width 17.6 % (9.3-17.3); White Blood Count 8.6 T/CUMM (4-12)
[2017-12-17 11:28] LABS: Band Neutrophils 11 % (0-10); Lymphocytes 4 % (20-55); Platelet Estimate Normal; Segmented Neutrophils 82 % (50-85); Total Cells Counted 100
[2017-12-17 11:29] LABS: Anisocytosis Slight; Poikilocytosis Slight
[2017-12-17 12:08] LABS: Sedimentation Rate-Westergren 133 MM/HR (0-20)
[2017-12-17 12:22] LABS: Folate 3.3 NG/ML (5.4-24.0); Vitamin B12 607 PG/ML (211-911)
[2017-12-18] MEDS: NOREPINEPHRINE 8 MG in SODIUM CHLORIDE 0.9% 242 ML IV SCH (00:09)
[2017-12-18] MEDS: PIPERACILLIN/TAZOBACTAM 3,375 MG in SODIUM CHLORIDE 0.9% 100 ML IV SCH ×2 (00:10→08:42)
[2017-12-18 04:02] LABS: Basophils % 0.2 % (0.0-0.8); Eosinophils % 0.2 % (0.00-10.9); Immature Granulocytes % 2.5 %; Immature Granulocytes Absolute 0.21 #; Lymphocytes # 0.7 10*3/uL (1.4-4.0); Lymphocytes % 8.4 % (21.2-54.2); Mean Corpuscular Hemoglobin 29 PG (27-34); Mean Corpuscular Volume 96.5 FL (87-102); Mean Platelet Volume 11.9 FL (9.6-12.0); Monocytes # 0.4 10*3/uL (0.11-0.8); Monocytes % 4.8 % (1.7-12.7); Neutrophils % 83.9 % (38.7-73.9); Platelet Count 198 T/CUMM (130-400); Red Blood Count 3.11 MC/CUMM (3.8-5.5); Red Cell Distribution Width 19.1 % (9.3-17.3); White Blood Count 8.3 T/CUMM (4-12)
[2017-12-18 04:29] LABS: Calcium 8.3 MG/DL (8.5-10.1); Osmolality,Calculated 298.3 MOS/KG (273-304); Potassium 4.3 MMOL/L (3.5-5.1)
[2017-12-18 04:38] LABS: Anisocytosis Slight; Burr Cells 1+; Lymphocytes 13 % (20-55); Macrocytosis 2+; Platelet Estimate Normal; Segmented Neutrophils 82 % (50-85); Total Cells Counted 100
[2017-12-18] MEDS ORDERED: KETOROLAC 15 MG/1 ML VIAL IM ONE (05:30)
[2017-12-18] MEDS: COLCHICINE 0.6 MG TABLET PO SCH ×2 (08:41→21:45)
[2017-12-18] MEDS: PANTOPRAZOLE 40 MG TABLET PO SCH ×3 (08:41→21:45)
[2017-12-18] MEDS: APIXABAN 5 MG TABLET PO SCH ×2 (08:41→21:46)
[2017-12-18] MEDS: SODIUM HYPOCHLORITE 0.25% IRRIG 473 ML BOTTLE TOP SCH (08:42)
[2017-12-18] MEDS: predniSONE 10 MG TABLET PO SCH (08:42)
[2017-12-18] MEDS: SODIUM CHLORIDE 0.45% 1,000 ML IV SCH ×2 (10:00→11:01)
[2017-12-18] MEDS: MEROPENEM 1,000 MG in SODIUM CHLORIDE 0.9% 100 ML IV SCH ×2 (10:00→21:47)
[2017-12-18] MEDS: FOLIC ACID 1 MG TABLET PO SCH ×2 (10:00→21:46)
[2017-12-18] MEDS ORDERED: ALUMINUM/MAGNES/SIMETH MAX STR 30 ML UDCUP PO PRN (10:41)
[2017-12-18] MEDS: GENTAMICIN INJ 160 MG in SODIUM CHLORIDE 0.9% 100 ML IV SCH ×2 (12:13→21:46)
[2017-12-18] MEDS: ZINC SULFATE 220 MG CAPSULE PO SCH (21:45)
[2017-12-18] MEDS: MORPHINE ER 15 MG TABLET PO SCH (21:45)
[2017-12-19] MEDS: SODIUM CHLORIDE 0.45% 1,000 ML IV SCH ×2 (02:01→17:04)
[2017-12-19] MEDS: MORPHINE ER 15 MG TABLET PO SCH ×3 (03:06→21:12)
[2017-12-19] MEDS: GENTAMICIN INJ 160 MG in SODIUM CHLORIDE 0.9% 100 ML IV SCH ×2 (05:25→12:19)
[2017-12-19 05:34] LABS: Basophils % 0.3 % (0.0-0.8); Hematocrit 28.3 VOL% (42.0-52.0); Hemoglobin 9.1 GM/DL (14.0-18.0); Immature Granulocytes % 2.7 %; Immature Granulocytes Absolute 0.21 #; Lymphocytes # 0.9 10*3/uL (1.4-4.0); Lymphocytes % 11.4 % (21.2-54.2); Mean Corpuscular HGB Conc 32.2 GM/DL (32-36); Mean Corpuscular Hemoglobin 30 PG (27-34); Mean Corpuscular Volume 91.9 FL (87-102); Mean Platelet Volume 12.6 FL (9.6-12.0); Monocytes # 0.5 10*3/uL (0.11-0.8); Monocytes % 6.3 % (1.7-12.7); Neutrophils # 6.2 10*3/uL (1.4-7.4); Neutrophils % 79.3 % (38.7-73.9); Platelet Count 189 T/CUMM (130-400); Red Blood Count 3.08 MC/CUMM (3.8-5.5); Red Cell Distribution Width 18.4 % (9.3-17.3); White Blood Count 7.8 T/CUMM (4-12)
[2017-12-19] MEDS: SODIUM HYPOCHLORITE 0.25% IRRIG 473 ML BOTTLE TOP SCH ×3 (05:42→21:11)
[2017-12-19 05:49] LABS: Osmolality,Calculated 295.3 MOS/KG (273-304); Potassium 3.7 MMOL/L (3.5-5.1)
[2017-12-19 06:05] LABS: Hypochromasia Slight; Lymphocytes 9 % (20-55); Microcytosis 1+; Segmented Neutrophils 82 % (50-85); Total Cells Counted 100
[2017-12-19 06:06] LABS: Anisocytosis 1+; Platelet Estimate Adequate
[2017-12-19] MEDS ORDERED: MAGNESIUM SULF RIDER 4 GM in PREMIX 1 EACH IV ONE (09:00)
[2017-12-19 09:20] LABS: Hemoglobin A1 (Alkaline) 97.3 % (96.5-98.5); Hemoglobin A2 (Alkaline) 2.7 % (1.5-3.5)
[2017-12-19] MEDS: COLCHICINE 0.6 MG TABLET PO SCH ×2 (09:41→21:13)
[2017-12-19] MEDS: ASCORBIC ACID 500 MG TABLET PO SCH (09:41)
[2017-12-19] MEDS: PANTOPRAZOLE 40 MG TABLET PO SCH ×2 (09:42→21:13)
[2017-12-19] MEDS: MEROPENEM 1,000 MG in SODIUM CHLORIDE 0.9% 100 ML IV SCH ×3 (09:42→21:13)
[2017-12-19] MEDS: APIXABAN 5 MG TABLET PO SCH ×2 (09:42→21:13)
[2017-12-19] MEDS: predniSONE 10 MG TABLET PO SCH (09:42)
[2017-12-19] MEDS: FOLIC ACID 1 MG TABLET PO SCH ×2 (09:44→21:13)
[2017-12-19] MEDS: ZINC SULFATE 220 MG CAPSULE PO SCH (10:38)
[2017-12-19] MEDS: VANCOMYCIN 50 MG/ML 60 ML/BOTTLE PO SCH ×4 (11:12→21:12)
[2017-12-19] MEDS ORDERED: MAGNESIUM SULF RIDER 2 GM in PREMIX 1 EACH IV PRN (22:27)
[2017-12-19] MEDS ORDERED: MAGNESIUM SULF RIDER 4 GM in PREMIX 1 EACH IV PRN (22:27)
[2017-12-20] MEDS: SODIUM CHLORIDE 0.45% 1,000 ML IV SCH (03:46)
[2017-12-20] MEDS: MEROPENEM 1,000 MG in SODIUM CHLORIDE 0.9% 100 ML IV SCH (05:09)
[2017-12-20 05:43] LABS: Calcium 8.1 MG/DL (8.5-10.1); Osmolality,Calculated 289.6 MOS/KG (273-304); Potassium 3.2 MMOL/L (3.5-5.1)
[2017-12-20] MEDS ORDERED: POTASSIUM CHLORIDE RIDER 10 MEQ in PREMIX 1 EACH IV PRN (07:12)
[2017-12-20] MEDS ORDERED: POTASSIUM CHLORIDE RIDER 20 MEQ in PREMIX 1 EACH IV PRN (07:12)
[2017-12-20 07:39] VITALS: BP 120/63
[2017-12-20] MEDS: SODIUM HYPOCHLORITE 0.25% IRRIG 473 ML BOTTLE TOP SCH (09:00)
[2017-12-20] MEDS: VANCOMYCIN 50 MG/ML 60 ML/BOTTLE PO SCH (09:00)
[2017-12-20] MEDS: ZINC SULFATE 220 MG CAPSULE PO SCH (10:02)
[2017-12-20] MEDS: COLCHICINE 0.6 MG TABLET PO SCH (10:03)
[2017-12-20] MEDS: APIXABAN 5 MG TABLET PO SCH (10:03)
[2017-12-20] MEDS: FOLIC ACID 1 MG TABLET PO SCH (10:03)
[2017-12-20] MEDS: MORPHINE ER 15 MG TABLET PO SCH (10:03)
[2017-12-20] MEDS: predniSONE 10 MG TABLET PO SCH (10:03)
[2017-12-20] MEDS: ASCORBIC ACID 500 MG TABLET PO SCH (10:04)
[2017-12-20] MEDS: PANTOPRAZOLE 40 MG TABLET PO SCH (10:04)
[2017-12-20] MEDS ORDERED: POTASSIUM BICARB EFFERVESCENT 25 MEQ TABLET PO STA (13:01)
[2017-12-21] MEDS ORDERED: COLLAGENASE OINT 30 GM TUBE TOP SCH (09:00)
== END 2017-12-20 13:30 | DRG 720 ==
LOC: SUATTDRO 21:46 → N.CC 21:46 → N.5E 12-19 15:21
PROVIDERS: ADMIT Internal Medicine; ATTEND Internal Medicine